=== PATIENT | female | born 1995 | race American Indian/Alaskan Native ===

== ENCOUNTER 2016-08-01 04:41 | Inpatient (IN) | payer MEDICAID ==
[2016-08-01] MEDS ORDERED: Lidocaine 1% 30 ML SDV INJECT PRN (05:28)
[2016-08-01] MEDS ORDERED: Lactated Ringers 500 ML IV ONE (05:28)
[2016-08-01] MEDS ORDERED: Sodium Chloride 0.9% 10 ML Syringe FLUSH PRN ×2 (05:28→11:31)
[2016-08-01] MEDS ORDERED: Acetaminophen 325 MG Tab PO PRN (05:28)
[2016-08-01] MEDS ORDERED: Carboprost Tromethamine 250 MCG/1 ML Amp IM PRN (05:28)
[2016-08-01] MEDS ORDERED: Methylergonovine 0.2 MG/1 ML Amp IM PRN (05:28)
[2016-08-01] MEDS ORDERED: Misoprostol 400 MCG (4 X 100 MCG TAB) RECTAL PRN (05:28)
[2016-08-01] MEDS: Lactated Ringers 1,000 ML IV SCH ×5 (05:30→11:05)
[2016-08-01] MEDS: Ondansetron 4 MG/2 ML SDV IV PRN ×2 (06:16→11:02)
[2016-08-01] MEDS ORDERED: fentaNYL 100 MCG/2 ML SDV ONE ×2 (06:19→11:08)
[2016-08-01] MEDS ORDERED: ePHEDrine 50 MG/ML SDV ONE (06:46)
--- NOTE | 2016-08-01 07:30 | PCM.PRNOTE ---
{null, - Free Text/Narrative Note: Called to provide intrathecal pain relief to this laboring patient. After consent signed, and monitors on, proceeded. With patient in sitting position, sterile prep/drape. Skin wheal at L3-4 with 1 % lidocaine. LP X 1 with 25g pencan spinal needle. Positive, free flowing CSF. No heme, no paresthesia. Then 20mcg sufenta (the first vial of sufenta fell on the floor and was wasted at pyxis with the nurse), plus 30mcg fentanyl plus 6mg (0.8ml) mpf hyperbaric spinal 0.75%mpf marcaine, plus 0.4ml preservative saline, plus epi wash given intrathecally. Patient's SBP dropped to high 70's after around 5 minutes, so ephedrine given - first 10mg, with good effect, then around 10 minutes later another 15mg needed due to SBP drop, again given with good effect, then around 5 minutes later, another 10mg ephedrine given- again with good effect. During this time, fluid boluses were also given. Patient was resting comfortably, without complaint of pain with contractions, or complaint of nausea. }
[2016-08-01] MEDS ORDERED: Oxytocin/Normal Saline 30 UNIT/500 ML BAG IV SCH (08:15)
--- NOTE | 2016-08-01 08:18 | PN ---
{null, DATE: 08/01/2016 SUBJECTIVE: The patient had the urge to push. OBJECTIVE: Vaginal exam reveals her to be 6 cm, 85% effaced, -1 station, vertex suspected with cervix being somewhat posterior. Tocometer, difficulty reading currently. heart tones in the 150s and accelerations have been seen. ASSESSMENT AND PLAN: Continued active labor, 40 and 1/7 week . We will continue to follow clinically and closely. Bag of water was felt with vaginal exam just now. We will continue to follow clinically and closely. Intrathecal has been called for. We will await staff to give this at the patient's request. Still awaiting labs as well. [facility] /[id number] }
[2016-08-01] MEDS ORDERED: Misoprostol 50 MCG (1/2 of 100 MCG) Tab VAG ONE (08:19)
--- NOTE | 2016-08-01 09:48 | PN ---
{null, DATE: 08/01/2016 SUBJECTIVE: The patient is comfortable and sleeping now status post her intrathecal. OBJECTIVE: heart tones in the 140s range, minimal variability and acceleration noted with vaginal exam. Tocometer reveals contractions every 4 to 5 minutes. Vaginal exam reveals her to be 6 cm, 85% effaced, -1/-2 station, vertex suspected. Artificial rupture of membranes done after discussion with the patient, yielding copious amounts of clear fluid. ASSESSMENT: Intrauterine at 40-1/7th weeks by 16-2/7th-week ultrasound with active labor, advanced cervical dilation, limited insufficient care, positive Chlamydia treated in the past and tested for today with urine drug screen positive for oxycodone. PLAN: We will follow clinically and closely. Consider Pitocin augmentation if heart tones become more reassuring and we will follow closely. At the current time of dictation, we are leaving the operating room open as well as VACUUM TECHNICIAN available until this patient delivers due to her risk factors and concerns. [facility] /[id number] }
[2016-08-01] MEDS ORDERED: fentaNYL 100 MCG/2 ML SDV IVPUSH PRN (10:07)
[2016-08-01] MEDS ORDERED: fentaNYL 100 MCG/2 ML SDV ITHECAL ONE (10:33)
[2016-08-01] MEDS ORDERED: ePHEDrine 50 MG/ML SDV IV ONE (10:35)
[2016-08-01] MEDS ORDERED: Oxytocin 10 Units/1 ML SDV IM PRN (11:31)
[2016-08-01] MEDS ORDERED: Simethicone 80 MG Tab.Chew PO PRN (11:31)
[2016-08-01] MEDS ORDERED: Zolpidem 5 MG Tab PO PRN (11:31)
[2016-08-01] MEDS ORDERED: Benzocaine/Menthol 20%-0.5% Spray 56 GM Canister TOP PRN (11:31)
[2016-08-01] MEDS ORDERED: Measles, Mumps & Rubella Vaccine 0.5 ML SDV SUBCUT ONE (11:31)
--- NOTE | 2016-08-01 11:34 | PCM.PRNOTE ---
{null, - Free Text/Narrative Note: Called to re-do intrathecal for pain relief for this patient. All meds were drawn up, after sterile prep and drape, skin wheal with 1% lidocaine at L3-4 - after skin wheal, patient stated that she needed to push - pt was then placed in supine position, where the nurses delivered her. All narcotics were then wasted (see pyxis). }
[2016-08-01] MEDS: Ibuprofen 800 MG Tab PO PRN (11:45)
[2016-08-01] MEDS ORDERED: Diphtheria,Pertussis(Acell),Tetanus Vaccine 0.5 ML SDV IM ONE (12:00)
--- NOTE | 2016-08-01 12:35 | HP ---
{null, PATIENT IDENTIFICATION: Fiorella George is a 21-year-old G3, P 1-0-1-1, intrauterine at 40-2/7th weeks by 16-2/7th week ultrasound with limited/insufficient care that presents with contractions. HISTORY OF PRESENT ILLNESS: The patient states contractions started about 3 days ago, worsening since 3:00 a.m. on date of admission, increasing in frequency and intensity to the point that they are coming every 5 minutes, causing her breathe through and felt in the lower abdomen and back area. She denies any spotting, bleeding, or leaking. She does believe she has lost her mucus plug over the last 2 to 3 days with a mucusy type discharge. To put this in context, she had positive chlamydia back in February 2016 and stated she was treated at [facility] for this and remembers taking big pills. Records were called for, reviewed as below and supplemented by patient history, had one visit in February [address] [facility]. OB HISTORY: On 10/21/2014 had vacuum-assisted vaginal delivery with first- degree periurethral abrasion that was repaired with bradycardia prolonged second stage of labor, right OP presentation, nuchal cord x1, yielding a male weighing 7 pounds 9 ounces with of 6 and 9, with an EBL of 300 mL. ANTEPARTUM LABS: ABO blood type is A positive, negative antibody. Rubella immune. RPR nonreactive. Negative hepatitis B surface antigen. Negative hep C, HIV, positive chlamydia, and negative gonococcal disease. Urine drug screen in October 2015 was positive for opiates, oxycodone, and benzodiazepines in February 2016 during this was negative. ALLERGIES: The patient states none, but tramadol is listed in chart. PAST MEDICAL/PAST SURGICAL HISTORY: Multiple knee surgeries in 06/2013 and 08/2013 had an allograft implant on the knee with removal of deep implant at that time. History of recurrent otitis media, pharyngeal tonsillitis, bronchitis, cellulitis of face, impetigo, acute sinusitis, tear of her PCL, and questionable distant history of MRSA. FAMILY HISTORY: Diabetes runs in the family. Lung cancer in paternal grandfather. Negative family history of defects, anesthesia, bleeding problems, or thyroid disorder. SOCIAL HISTORY: The patient had been living in [place]. No care there. [place] father of baby, presents with her today. She does smoke 2 to 3 cigarettes per day. Denies alcohol or drug use. Positive drug screen as noted in the past and negative in February 2016. REVIEW OF SYSTEMS: Otherwise reviewed and felt to be noncontributory. OBJECTIVE: Vital Signs: Blood pressure and vitals will be updated and [facility]. No immediate concerns were noted per nurses. Appearance: Female appears stated age, acting appropriate, nontoxic appearance. Breathing through contractions, but answering questions appropriately in between. HEENT: Head is atraumatic. EOMs intact. PERRLA. No scleral icterus. No obvious otorhinorrhea. Mucous membranes are moist. Neck: No masses or tenderness. Lungs: Clear to auscultation bilaterally. No increased work of breathing. Heart: S1 and S2. Regular rate and rhythm. Abdomen: Gravid, Jamal's indeterminate, nontender, and nondistended. Bowel sounds positive. No organomegaly, pulsatile masses, or hernias. No rebound, rigidity, or guarding. : Normal external female genitalia. Normal position and presentation of urethra. Speculum exam done. GC, chlamydia and wet prep was obtained. There is some minimal spotting. Negative pooling. Ferning was done as well. Mucusy cervical discharge was noted. Vaginal exam thereafter reveals her to be 6 cm, 85% effaced, -1 station, vertex suspected and bag of water felt. Extremities: No peripheral edema. Deep tendon reflexes 3/4 bilaterally and symmetric in the lower extremities. Psych: Mood and affect are congruent. Judgment and insight are intact. Skin: No cyanosis, clubbing, or jaundice. LABORATORY DATA: Pending is a CBC, and a bio red drug screen. heart tones are in the 140s to 150s range. I see one acceleration at current time of dictation. Tocometer reveals contractions every 2 to 3 minutes. ASSESSMENT AND PLAN: 1. Intrauterine 40-1/7th weeks by 16-2/7th week ultrasound. 2. Active labor with advanced cervical dilation being 6 cm. 3. Limited/insufficient care with only documented visit in February 2016. 4. Group B Streptococcus unknown status. The patient is currently afebrile. No evidence of rupture of membranes and is over 37 weeks. We will continue to follow clinically and closely. 5. Positive chlamydia back in February 2016, suspected treatment based on her history of picking up some pills at [facility], retest today. 6. History of positive urine drug screen in October 2015 for opiates, oxycodone, and benzodiazepines. Negative in February 2016, we will do one today. 7. G3, P 1-0-2-1. PLAN: As the patient has had rapid dilation from 3 cm to 6 cm, wishing something for pain. We will call for intrathecal. We will have her labs drawn as above and we will continue to follow clinically and closely. The patient understands and agrees with the above treatment plan. [facility] /[id number] }
--- NOTE | 2016-08-01 12:38 | PN ---
{null, DATE: 08/01/2016 SUBJECTIVE: Patient is feeling contractions, had an urge to push. I was called to the room. OBJECTIVE: heart tones in the 150s, variability is noted. Tocometer reveals contractions every 2 to 3 minutes, it is at 6. Vaginal exam reveals to be 7 to 8 cm, 95% effaced, -1 to - 2 station, vertex suspected. ASSESSMENT: Intrauterine at 40 and 1/7th weeks by 16 and 2/7th week ultrasound now status post artificial rupture of membranes and Pitocin augmentation, admitted with active labor and advanced cervical dilation, with history of limited/insufficient care. Positive UDS for oxycodone. PLAN: We will continue with current treatment, hold off on OR starting the case as she is progressing and we will follow clinically and closely. The patient understands and agrees with the above treatment plan. [facility] /[id number] }
[2016-08-02] MEDS: Ibuprofen 800 MG Tab PO PRN ×3 (00:36→23:11)
[2016-08-02] MEDS: Docusate Sodium 100 MG Cap PO PRN ×3 (00:36→23:12)
--- NOTE | 2016-08-02 09:49 | PN ---
{null, DATE: 08/02/2016 SUBJECTIVE: The patient is tolerating p.o., ambulating, urinating, and passing flatus, had some back pain, using a K-pad, bottle feeding her baby. OBJECTIVE: Vital Signs: Last set of vitals updated and listed in the chart. Temperature 98.4, heart rate 97, blood pressure 113/64, respiratory rate 18. Appearance: Lying in the bed. Lungs: Clear to auscultation bilaterally. Heart: S1 and S2. Regular rate and rhythm. Abdomen: Firm uterus -1 below umbilicus. Extremities: No peripheral edema. No calf pain. ASSESSMENT AND PLAN: day #1, status post precipitous spontaneous vaginal delivery, appears to be doing well. We will continue to follow clinically and closely. Continue K-pad for her back pain, encouraged fluid intake and follow closely. The patient understands and agrees with the above treatment plan. [facility] /[id number] }
--- NOTE | 2016-08-02 10:35 | DEL ---
{null, DATE: 08/01/2016 PREOPERATIVE DIAGNOSES: 1. Intrauterine at 40 and 1/7 weeks by 16-2 weeks' ultrasound. 2. Active labor with advanced cervical dilation upon admission. 3. Limited/insufficient care. 4. Group B Streptococcus unknown. 5. Positive chlamydia in February 2016, suspect treatment with retesting upon admission. 6. History of UDS positive in December 2015 with opiates, oxycodone, and benzodiazepines, negative in 02/2016 and positive for oxycodone upon admission. 7. 3, para 1-0-1-1. POSTOPERATIVE DIAGNOSES: 1. Intrauterine at 40 and 1/7 weeks by 16-2/ weeks' ultrasound, precipitous spontaneous vaginal delivery. 2. Active labor, advanced cervical dilation upon admission. 3. Limited/insufficient care. 4. Group B Streptococcus unknown. 5. Positive chlamydia in February 2016, suspect treatment with retest being upon admission. 6. History of UDS positive in December 2015 with opiates, oxycodone, and benzodiazepines, negative in 02/2016 and positive for oxycodone upon admission. 7. 3, para 1-0-1-1. 8. JACI presentation with left hand by right cheek. PROCEDURE PERFORMED: Artificial rupture of membranes, Pitocin augmentation, precipitous spontaneous vaginal delivery. ANESTHESIA/ANALGESIA: The patient did receive an intrathecal in the first stage of labor. She also received some fentanyl. ESTIMATED BLOOD LOSS: 200 mL. FINDINGS: Male, Apgars and weight pending with precipitous spontaneous vaginal delivery noted. SUMMARY OF EVENTS: The patient is a 21-year-old, G3, P1-0-1-1 with intrauterine at 40 and 1/7 weeks by 16 and 2/7 weeks' ultrasound, admitted with active labor with advanced cervical dilation, history of limited insufficient care, and other history as above with a positive UDS for oxycodone upon admission. Subsequently, the patient received an intrathecal in the first stage of labor, slowly progressed thereafter to 7 to 9 cm, positional changes ensued, and despite this, the patient started having more pain once her intrathecal wore off and was requesting another intrathecal. She did receive some fentanyl prior and did not provide patient the relief she wanted. Subsequently, 2nd intrathecal was called for and as patient was being set up to be given the intrathecal, she had the urge to push. I do not believe any anesthesia was given. A needle was removed from her back, which I believe only had lidocaine for local anesthesia. She subsequently laid back, nurses delivered JACI presentation with left hand by right cheek. I arrived to the room as I was called to the room stat, donned sterile gloves. Upon my arrival to the room, the patient was being put on mother's abdomen/chest. Subsequently, cord was doubly clamped and cut, infant was further resuscitated on mother's chest, and then approximately 10 mL of cord blood was obtained for labs. Placenta then delivered with gentle cord traction and fundal massage within 5-10 minutes. Perineum, vagina, and perirectal areas were then examined and noted to have bilateral less than 1.5 cm labia minora abrasions, nonbleeding, non-repaired after discussion with the patient. Pitocin was started per protocol. Mother and infant are currently stable at the time of dictation. [facility] /[id number] [facility] }
[2016-08-02] MEDS: Prenatal Multivitamin with Calcium/Folic Acid/Iron Tab PO SCH (11:03)
--- NOTE | 2016-08-02 14:01 | PCM48HPAN ---
{null, Post Anesthesia Note - EVALUATION WITHIN 48HRS OF ANESTHETIC Vital Signs in Normal Range: Yes (36.9, 97, 113/64, 18 RR) Patient Participated in Evaluation: Yes Respiratory Function Stable: Yes Airway Patent: Yes Cardiovascular Function Stable: Yes Hydration Status Stable: Yes Pain Control Satisfactory: Yes Nausea and Vomiting Control Satisfactory: Yes Mental Status Recovered: Yes - COMMENTS/OBSERVATIONS Free Text/Narrative:: Patient has mild c/o back pain at intrathecal site, states that it is well controlled with the pain meds she is receiving, and is similar to the pain from her prior delivery. Patient has no other c/o - no c/o PDPH, no c/o nausea etc. No post anesthesia complications noted. }
[2016-08-02] MEDS: Acetaminophen/HYDROcodone 325-10 MG Tab PO PRN (23:11)
[2016-08-03] MEDS: Acetaminophen/HYDROcodone 325-10 MG Tab PO PRN (04:09)
[2016-08-03] MEDS: Docusate Sodium 100 MG Cap PO PRN (13:44)
[2016-08-03] MEDS: Ibuprofen 800 MG Tab PO PRN (13:44)
[2016-08-03] MEDS: Prenatal Multivitamin with Calcium/Folic Acid/Iron Tab PO SCH (13:51)
[2016-08-03 16:07] VITALS: BP 101/56
--- NOTE | 2016-08-05 10:59 | DISCH ---
{null, ADMIT DIAGNOSES: 1. Intrauterine at 40-1/7 weeks by 16-2/7 weeks' ultrasound. 2. Active labor with advanced cervical dilation being 6-7 cm upon admit. 3. Limited/insufficient care. 4. Group B Streptococcus unknown. 5. Positive chlamydia in February 2016, suspected treatment, tested for upon admission. 6. History of positive drug screen in October 2015 for opiates, oxycodone, benzodiazepines, negative in February 2016, but positive upon admission with oxycodone. 7. 3, para 1-0-1-1. DISCHARGE DIAGNOSES: 1. Intrauterine at 40-1/7 weeks by 16-2/7 weeks' ultrasound- delivered. 2. Active labor with advanced cervical dilation being 6-7 cm upon admit. 3. Limited/insufficient care. 4. Group B Streptococcus unknown. 5. Positive chlamydia in February 2016, suspected treatment, tested for upon admission. 6. History of positive drug screen in October 2015 for opiates, oxycodone, benzodiazepines, negative in February 2016, but positive upon admission with oxycodone. 7. Now 3, para 2-0-1-2 8. Left occiput anterior presentation with left hand by right cheek.. PROCEDURES PERFORMED: Artificial rupture of membranes, Pitocin augmentation, precipitous spontaneous vaginal delivery per Dr. Zaldivar. HISTORY OF PRESENT ILLNESS: Please see H and P. SUMMARY OF HOSPITAL COURSE: The patient was admitted on the above date with the above diagnoses, underwent the above procedures. Then went on to have the precipitous spontaneous vaginal delivery yielding a male with scores 8 and 9, weighing 3585 g, with JACI presentation with left hand by right cheek. Please see delivery note for further details. day 1, please see note. day #2, date of discharge, the patient was tolerating p.o., ambulating, urinating, and passing flatus, requesting discharge. PHYSICAL EXAMINATION: Vital Signs: Last set of vitals updated and listed in the chart. Temperature 97.9, heart rate 88, blood pressure 118/68, respiratory rate 16. Lungs: Clear to auscultation bilaterally. Heart: S1 and S2. Regular rate and rhythm. Abdomen: Firm uterus right below the umbilicus. Extremities: No peripheral edema. No calf pain. LABORATORY DATA: Discharge white cell count 12.2, hemoglobin 11.3, compared to predelivery hemoglobin 11.6, and platelets 214,000. CONDITION ON DISCHARGE COMPARED TO CONDITION ON ADMISSION: Improved. DISCHARGE INSTRCUTIONS: 1. Diet as tolerated. 2. No lifting more than 10-20 pounds. 3. No sit-ups, straining, and pelvic rest for next 6 weeks with immediate return to fertility discussed with the patient. 4. Reasons to return or go to the emergency room were discussed with the patient in detail including, but not limited to, temperature greater than 100.4, foul-smelling discharge, red, hot tender breasts, or increased vaginal bleeding. DISCHARGE MEDICATIONS: 1. [id number] Tylenol or ibuprofen for pain. 2. Iron sulfate 325 b.i.d. x6 weeks. FOLLOW UP: For 6-week visit. Her baby will be followed up on Friday, 2 days from now, in the clinic. Appointment has been made. Discussed with the patient the importance of followup and ramifications of not doing so in regard to her as well as reasons to return or go to the emergency in regard to her . [facility] /[id number] [facility] }
== END 2016-08-03 15:10 | disposition home or self-care (01) | DRG 775 ==
LOC: DL.OBCHECK 04:41 → DL.OB 05:28 → OBSVTOIN 11:21 → DL.OB 11:21
PROVIDERS: ADMIT Family Medicine; ATTEND Family Medicine
PROC: 10E0XZZ Delivery of Products of Conception, External Approach (ICD-10-PCS; principal; 2016-08-01)
PROC: 00HU33Z Insertion of Infusion Device into Spinal Canal, Percutaneous Approach (ICD-10-PCS; 2016-08-01)
PROC: 3E0R3CZ (ICD-10-PCS; 2016-08-01)
DX: O99.334 Smoking (tobacco) complicating childbirth (principal); O62.3 Precipitate labor; O99.324 Drug use complicating childbirth; F11.90 Opioid use, unspecified, uncomplicated; F17.210 Nicotine dependence, cigarettes, uncomplicated; Z3A.40 40 weeks gestation of pregnancy; Z37.0 Single live birth
CPT/HCPCS: 01967; 36415; 80305; 82274; 85027; 87210; 87491; 87591; 90715; A9270-GY; J2405; J2590; J3010; J7120

== ENCOUNTER 2016-10-31 04:46 | Emergency (ER) | payer MEDICAID ==
[2016-10-31 05:03] VITALS: BP 115/64
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
[2016-10-31 05:44] LABS: CHLORIDE,CL 105 mmol/L (101-111); SODIUM,NA 141 mmol/L (135-145)
[2016-10-31] MEDS ORDERED: Acetaminophen/Codeine 120-12 MG/5 ML Soln 5 ML UD Cup PO ONE (06:01)
== END 2016-10-31 06:27 | disposition home or self-care (01) ==
LOC: DL.ED 04:46
DX: S00.83XA Contusion of other part of head, initial encounter (principal); M54.2 Cervicalgia; F17.210 Nicotine dependence, cigarettes, uncomplicated; Z88.5 Allergy status to narcotic agent; W10.8XXA Fall (on) (from) other stairs and steps, initial encounter
CPT/HCPCS: 36415; 70450; 70486; 72125; 73660; 80053; 84703; 85025; 99284; A9270; G0480

== ENCOUNTER 2016-11-15 15:11 | Emergency (ER) | payer MEDICAID ==
[2016-11-15 17:20] VITALS: BP 115/74
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
[2016-11-15] MEDS ORDERED: cefTRIAXone 250 MG, Lidocaine 1% 0.9 ML IM ONE ×2 (18:24)
[2016-11-15] MEDS ORDERED: Azithromycin 250 MG Tab PO ONE (18:24)
[2016-11-15 18:43] LABS: CHLORIDE,CL 104 mmol/L (101-111); SODIUM,NA 140 mmol/L (135-145)
[2016-11-15] MEDS ORDERED: cefTRIAXone 1 GM Vial ONE (18:45)
[2016-11-15] MEDS ORDERED: cefTRIAXone 1 GM, Lidocaine 1% 2.1 ML IM ONE ×2 (18:57)
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
== END 2016-11-15 19:41 | disposition home or self-care (01) ==
LOC: DL.ED 15:11
DX: T76.21XA Adult sexual abuse, suspected, initial encounter (principal); F17.210 Nicotine dependence, cigarettes, uncomplicated; Z98.890 Other specified postprocedural states; Z88.5 Allergy status to narcotic agent
CPT/HCPCS: 72040; 73080; 73110; 73130; 80053; 80305; 81001; 82550; 82553; 85025; 86703; 86803; 87210; 87340; 99285; A9270; J0696; 36415

== ENCOUNTER 2016-12-28 01:42 | Emergency (ER) | payer SELFPAY ==
[2016-12-28 01:56] VITALS: BP 140/102
== END 2016-12-28 01:55 | disposition left against medical advice (07) ==
LOC: DL.ED 01:42
DX: Z53.21 Procedure and treatment not carried out due to patient leaving prior to being seen by health care provider (principal)

== ENCOUNTER 2016-12-28 12:05 | Emergency (ER) | payer SELFPAY ==
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
[2016-12-28 12:54] LABS: CHLORIDE,CL 100 mmol/L (101-111); SODIUM,NA 139 mmol/L (135-145)
[2016-12-28 13:00] LABS: ACETAMINOPHEN < 10
[2016-12-28 14:10] VITALS: BP 118/85
== END 2016-12-28 14:40 ==
LOC: DL.ED 12:05
DX: F19.10 Other psychoactive substance abuse, uncomplicated (principal); F17.210 Nicotine dependence, cigarettes, uncomplicated; Z88.6 Allergy status to analgesic agent
CPT/HCPCS: 36415; 71010; 73560; 80053; 80305; 81001; 81025; 83735; 84443; 85025; 99285; G0480; 99284

== ENCOUNTER 2018-04-08 04:01 | Inpatient (IN) | payer MEDICAID, OTHER ==
--- NOTE | 2018-04-08 07:02 | OBOUT ---
DATE: 04/08/2018 SUBJECTIVE: Fiorella is a 23-year-old woman who presents with what she thought was rupture of membranes. She is approximately 39 and 4/7 weeks' gestation today. She says that she has been having some clear drainage and discharge for the past several hours. She does note that she is also having some contractions every 3 to 5 minutes. OBJECTIVE: Vital Signs: Stable. She is afebrile. General: Fiorella is a 23-year-old woman who is uncomfortable with frequent contractions. Pelvic: Nursing did do a cervical exam, and she was 3 cm dilated. She was observed for over an hour. Initially, she had regular contractions every 3 minutes, but those spaced up fairly quickly and are now very infrequent and in an irregular pattern. LABORATORY DATA: Urinalysis was positive for clue cells. Both Nitrazine swab and AmniSure were negative. ASSESSMENT: Bacterial vaginosis in a 39-4/7 weeks' gestation . PLAN: We will place her on metronidazole 500 mg twice a day for 7 days. She has her OB followup already scheduled in [place]. [facility] /[id number]
[2018-04-08] MEDS ORDERED: Ondansetron 4 MG/2 ML SDV IV PRN (10:22)
[2018-04-08] MEDS ORDERED: Misoprostol 400 MCG (4 X 100 MCG TAB) RECTAL PRN (10:22)
[2018-04-08] MEDS ORDERED: Tranexamic Acid 1,000 MG in Sodium Chloride 0.9% 100 ML IV PRN (10:22)
[2018-04-08] MEDS ORDERED: Lidocaine 1% 30 ML SDV INJECT PRN (10:22)
[2018-04-08] MEDS ORDERED: Carboprost Tromethamine 250 MCG/1 ML Amp IM PRN (10:22)
[2018-04-08] MEDS ORDERED: Methylergonovine 0.2 MG/1 ML Amp IM PRN (10:22)
[2018-04-08] MEDS ORDERED: Sodium Chloride 0.9% 10 ML Syringe FLUSH PRN ×2 (10:22→15:39)
[2018-04-08] MEDS ORDERED: Lactated Ringers 500 ML IV ONE (10:22)
[2018-04-08] MEDS ORDERED: Oxytocin/Normal Saline 30 UNIT/500 ML BAG IV SCH ×2 (10:30→12:15)
[2018-04-08] MEDS ORDERED: Ondansetron 4 MG/2 ML SDV ONE (10:39)
[2018-04-08] MEDS ORDERED: fentaNYL 100 MCG/2 ML SDV ONE (10:46)
[2018-04-08] MEDS ORDERED: fentaNYL 100 MCG/2 ML SDV ITHECAL ONE (10:52)
[2018-04-08] MEDS: Lactated Ringers 1,000 ML IV SCH ×2 (11:05→14:24)
--- NOTE | 2018-04-08 11:22 | PCM.PRNOTE ---
- Free Text/Narrative Note: Requested to provide analgesia to full term patient in severe pain. Upon entering the room, patient is sitting on edge of bed complaining of severe abdominal/pelvic pain and discomfort. Procedure was discussed with patient including adverse outcomes and expectations. Pt consented to analgesia, SAB/ IT. Pt placed into a proper sitting position. Landmarks for SAB/IT were identified and marked. Hands were washed and appropriate PPE was applied. Back was prepped with betadine x3. A sterile, transparent, fenestrated drape was applied. Excess betadine was removed. Using 3 mL of a 1% lidocaine solution , a skin wheel was placed at the L2/L3 interspace. A 24 ga (4 inch) [place] spinal needle was inserted until positive for CSF. Negative for heme or paresthesias. Injected fentanyl 30 mcg, sufentanil 25 mcg, and 7.5 mg of a 0.75 % bupivacaine solution. Pt was placed left lateral position for approximately 20 minutes. There were zero complications or adverse outcomes. Will continue to monitor. Procedure Date & Time: 04/08/18 [id number]
--- NOTE | 2018-04-08 13:44 | OBOUT ---
DATE: 04/08/2018 DATE AND TIME OF NST: Date: 04/08/2018 Time: 1018 hours to 1030 hours. REASON FOR NST: 1. Intrauterine at 39+ weeks by 35 week ultrasound. 2. Active labor with contractions and cervical change. 3. History of vaginal leaking, doubt spontaneous rupture of membranes. 4. GBS negative. 5. Limited care with 1 visit documented. 6. History of positive THC on urine drug screen 03/09/2018, negative upon admission. 7. G3, P2-0-0-2. NST INTERPRETATION: During this time period, heart tone baseline is approximately 125 to 130 and there are at least two 15 x 15 beats per minute accelerations making this strip reactive. It is also noted to be reassuring. Tocometer reveals potential 4 contractions felt by patient. ASSESSMENT: 1. Nonstress test, reactive and reassuring. 2. Tocometer with contractions. PLAN: Please see H and P for further details. We will continue to follow clinically and closely. [facility] /[id number]
--- NOTE | 2018-04-08 13:53 | HP ---
PATIENT IDENTIFICATION: Fiorella George is a 23-year-old, G3, P2-0-0-2, intrauterine , at 39 plus weeks by a 35-week ultrasound, who presents with contractions and vaginal leaking. 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 At approximately 3:00 a.m. on the date of admission, the patient noticed vaginal leaking after getting out of the truck, enough to soak through her clothing. She put a large pad on and continued to soak through this pad and then presented to the hospital for further evaluation and management. She was initially evaluated by the physician on-call, Dr. Truong, and evaluated with labs revealing urinalysis with 5 to 10 white cells per high-power field, negative membrane rupture test, and negative urine drug screen. She was subsequently diagnosed with suspected BV, and Flagyl script was given. While she was waiting for a ride, her contractions increased in frequency and intensity to the point that they are coming every 2 to 5 minutes apart and increasing on the pain scale. While waiting for a ride, she was subsequently put in the tub after monitoring, ensured status reassuring; and thereafter, I was called to evaluate the patient as she was requesting my presence. Thereafter, she was found to be in labor with contractions and cervical change. Please see below. Records were called for, reviewed as below, and supplemented by the patient's history. ALLERGIES: Tramadol. MEDICATIONS: vitamins. OBSTETRICAL HISTORY: 1. On 10/21/2014, delivered a male, 6 pounds 4 ounces, spontaneous vaginal delivery. 2. On 08/11/2016, delivered a male, 7 pounds 6 ounces, with a precipitous spontaneous vaginal delivery. FAMILY HISTORY: Negative for anesthesia, bleeding problems, or defects. Mother with diabetes mellitus. PAST SURGICAL HISTORY: She had a right knee surgery in 2013. SOCIAL HISTORY: Lives in [place] with parents. Recently moved from [place] where she was getting her care. She lives with her children and a dog. She denies any alcohol, tobacco, or drug use. ANTEPARTUM LABORATORY DATA: ABO blood type for [place] records that were done on 03/09/2018, reveal a blood type of A positive, negative antibody, rubella immune, syphilis serology nonreactive, and negative hepatitis B surface antigen, HIV and a rapid GBS were negative. Urine drug screen was positive for THC on this date. OB ultrasound done on 03/09/2018, revealed a single live intrauterine gestation at 35 weeks exactly. No complications noted. Amniotic fluid is normal, measuring 16.10. REVIEW OF SYSTEMS: The patient denies any headaches, visual changes, or upper abdominal pain. Otherwise, review of systems was fully reviewed and felt to be noncontributory. OBJECTIVE: Vital Signs: Blood pressure 126/58, heart rate 97, the patient feels afebrile, and respiratory rate 12 to 16. Appearance: Female, appears her stated age, acting appropriate for age, nontoxic in appearance, breathing through contractions but answering questions appropriately in between. HEENT: Head atraumatic. EOMs intact. PERRLA. No scleral icterus. No obvious otorrhea or rhinorrhea. Mucous membranes are moist. Neck: No obvious tenderness. Lungs: Clear to auscultation bilaterally. No increased work of breathing. Heart: S1 and S2. Regular rate and rhythm. Abdomen: Gravid. Jamal indeterminate. Nontender. Nondistended. Bowel sounds positive. No other organomegaly, pulsatile masses, or obvious hernias. No rebound, rigidity, or guarding with monitors applied. Genitourinary: Normal external female genitalia. Normal position and presentation of urethra. Vaginal: My exam reveals her to be 6 to 7 cm, 85% effaced, -1 station, vertex suspected, and artificial rupture of membranes done after discussion with the patient yielding copious amounts of clear fluid. Extremities: No peripheral edema. Deep tendon reflexes, 2 to 3/4 bilaterally and symmetric in the lower extremities. Psychiatric: Mood and affect are congruent. Judgment and insight are intact. Skin: Without any cyanosis, clubbing, or jaundice. Pelvic: heart tones in the 130s range, felt to be reassuring. Tocometer reveals contractions every 2 to 5 minutes on average. ASSESSMENT: 1. Intrauterine at 39 plus weeks by a 35-week ultrasound. 2. Active labor as evidenced by contractions with cervical change. 3. History of vaginal leaking. Doubt rupture of membranes as bulging bag of water was felt and artificial rupture of membranes done as above as well as initial screen by Dr. Truong was negative. 4. Group B Streptococcus negative. 5. Limited care with one visit documented. 6. History of positive THC on drug screen, 03/09/2018, and negative upon admission. 7. 3, para 2-0-0-2. PLAN: The patient will be admitted. Artificial rupture of membranes done as above. She is requesting something for pain. Intrathecal will be given as soon as possible. Labs will be drawn, and we will continue to follow clinically and closely. Please see orders for further details. [facility] /[id number]
[2018-04-08] MEDS ORDERED: fentaNYL 100 MCG/2 ML SDV IVPUSH ONE (13:57)
--- NOTE | 2018-04-08 14:05 | PN ---
DATE: 04/08/2018 SUBJECTIVE: The patient is comfortable status post intrathecal. OBJECTIVE: Vital Signs: Blood pressure 102/82, heart rates in the 70s, and O2 saturations 97%. Pelvic: heart tones in the 130s and felt to be reassuring. Tocometer reveals contractions every 3 to 5 minutes on an average. Vaginal exam reveals her to be 6 to 7 cm, 85% effaced, -1 station, vertex suspected, and more vaginal leaking noted with vaginal exam clear in nature. ASSESSMENT AND PLAN: Intrauterine at 39 plus weeks by a 35-week ultrasound, admitted in active labor with contractions and cervical change with history of vaginal leaking. Doubt spontaneous rupture of membranes, has undergone artificial rupture of membranes previously, with limited care, in a G3, P2-0-0-2, now with no cervical change despite contractions. Her contractions are not in an adequate pattern yet at this point in time and we will start Pitocin, start at 2, up by 2 every 30 minutes and follow clinically and closely. Plans were discussed with the patient. She understands and agrees with the above treatment plan. [facility] /[id number]
[2018-04-08] MEDS ORDERED: Zolpidem 5 MG Tab PO PRN (15:39)
[2018-04-08] MEDS ORDERED: Measles, Mumps & Rubella Vaccine 0.5 ML SDV SUBCUT ONE (15:39)
[2018-04-08] MEDS ORDERED: Benzocaine/Menthol 20%-0.5% Spray 56 GM Canister TOP PRN (15:39)
[2018-04-08] MEDS ORDERED: Oxytocin 10 Units/1 ML SDV IM PRN (15:39)
[2018-04-08] MEDS ORDERED: Simethicone 80 MG Tab.Chew PO PRN (15:39)
[2018-04-08] MEDS ORDERED: Diphtheria,Pertussis(Acell),Tetanus Vaccine 0.5 ML SDV IM ONE (15:39)
[2018-04-08] MEDS: Ibuprofen 800 MG Tab PO PRN (17:23)
[2018-04-08] MEDS: Docusate Sodium 100 MG Cap PO PRN (17:23)
[2018-04-08] MEDS: Acetaminophen 325 MG Tab PO PRN (21:41)
[2018-04-09] MEDS: Ibuprofen 800 MG Tab PO PRN ×3 (01:47→21:36)
[2018-04-09] MEDS: Prenatal Multivitamin with Calcium/Folic Acid/Iron Tab PO SCH (09:06)
[2018-04-09] MEDS: Ferrous Sulfate 325 MG Tab PO SCH (09:06)
[2018-04-09] MEDS: Docusate Sodium 100 MG Cap PO PRN ×2 (09:12→21:36)
--- NOTE | 2018-04-09 10:08 | PN ---
DATE: 04/09/2018 day #1. SUBJECTIVE: The patient is tolerating p.o.'s, ambulating, urinating, and passing flatus. OBJECTIVE: Vital Signs: Temperature 98.1, heart rate 76, blood pressure 116/65, and respiratory rate 16. Lungs: Clear to auscultation bilaterally. Heart: S1 and S2. Regular rate and rhythm. Pelvic: Firm uterus +1 above umbilicus. Extremities: No peripheral edema. No calf pain. LABORATORY DATA: White cell count 9.5, hemoglobin down to 9.9 compared to predelivery hemoglobin 10.3, and platelets of 200. ASSESSMENT: 1. day #1, status post spontaneous vaginal delivery. 2. Anemia of and acute blood loss with hemoglobin 10.3, down to 9.9 today. We will consider starting iron and follow closely. 3. Rubella equivocal per chart review. The patient will be given MMR per protocol. PLAN: We will proceed to follow clinically and closely. Possible discharge tomorrow. Discussed with the patient. She understands and agrees. [facility] /[id number]
--- NOTE | 2018-04-09 10:14 | DEL ---
DATE: 04/08/2018 PREOPERATIVE DIAGNOSES: 1. Intrauterine at 39 plus weeks by 35-week ultrasound. 2. Active labor with contractions and cervical change upon admission. 3. History of vaginal leaking on date of admission, negative for spontaneous rupture of membranes workup. 4. Group B Streptococcus negative. 5. Limited care with one visit documented. 6. History of positive THC on drug screen 03/09/2018, with urine drug screen negative upon admission. 7. 3, para 2-0-0-2. POSTOPERATIVE DIAGNOSES: 1. Intrauterine at 39 plus weeks by 35-week ultrasound, delivered. 2. Active labor with contractions and cervical change upon admission. 3. History of vaginal leaking on date of admission, negative for spontaneous rupture of membranes workup. 4. Group B Streptococcus negative. 5. Limited care with one visit documented. 6. History of positive THC on drug screen 03/09/2018, with urine drug screen negative upon admission. 7. 3, para 2-0-0-2. 8. Right occiput anterior delivery with nuchal cord x1, reduced bluntly with delivery. PROCEDURES PERFORMED: NST, artificial rupture of membranes, Pitocin augmentation, and subsequent spontaneous vaginal delivery per Dr. Zaldivar. ANESTHESIA/ANALGESIA: The patient did receive an intrathecal in the first stage of labor. She also received some fentanyl p.r.n. ESTIMATED BLOOD LOSS: 200 mL. FINDINGS: Male. scores of 9 and 9. Weight pending. Nuchal cord x1, reduced bluntly with delivery. SUMMARY OF EVENTS: The patient is a 23-year-old, G3, P2-0-0-2, intrauterine at 39 plus weeks by 35-week ultrasound, admitted initially with vaginal leaking and followed closely. Negative spontaneous rupture of membranes, and as she was waiting to go home after this was negative, she went into spontaneous active labor with contractions and cervical change. She subsequently underwent NST, artificial rupture of membranes, and then had dilation of the cervix to become arrested and subsequent Pitocin augmentation was started. She received an intrathecal as well. She was found to be complete, and I was called to the room, donned sterile gown and gloves. The patient started pushing with contractions. vertex was then subsequently delivered in a SHARONDA presentation with nuchal cord x1, reduced bluntly with delivery as well as anterior and posterior shoulder as well as the rest of the infant followed thereafter. Mouth and nares were suctioned. Cord was doubly clamped and cut, and was resuscitated on the mother's abdomen. Then, approximately 10 mL of cord blood was obtained for labs. Placenta was then delivered with gentle cord traction and fundal massage within 12 minutes. Perineum, vagina, and perirectal areas were then examined without any tears or lacerations. Mother and are currently stable at the time of dictation. [facility] /[id number]
[2018-04-09 21:21] VITALS: BP 115/63
[2018-04-09] MEDS: Acetaminophen 325 MG Tab PO PRN (21:37)
[2018-04-10] MEDS: Acetaminophen 325 MG Tab PO PRN ×2 (02:28→08:44)
[2018-04-10] MEDS: Ibuprofen 800 MG Tab PO PRN (05:29)
[2018-04-10] MEDS: Docusate Sodium 100 MG Cap PO PRN (08:43)
[2018-04-10] MEDS: Prenatal Multivitamin with Calcium/Folic Acid/Iron Tab PO SCH (08:43)
[2018-04-10] MEDS: Ferrous Sulfate 325 MG Tab PO SCH (08:44)
--- NOTE | 2018-04-10 11:45 | DISCH ---
ADMITTING DIAGNOSES: 1. Intrauterine at 39 plus weeks by a 35-week ultrasound. 2. Active labor with contractions and cervical change upon admission. 3. History of vaginal leaking. Negative spontaneous rupture of membranes workup initially. 4. Group B streptococcus negative. 5. Limited care, one visit documented. 6. History of positive THC on drug screen, 03/09/2018, negative upon admission. 7. Rubella equivocal. 8. 3, para 2-0-0-2. DISCHARGE DIAGNOSES: 1. Intrauterine at 39 plus weeks by a 35-week ultrasound, delivered. 2. Active labor with contractions and cervical change upon admission. 3. History of vaginal leaking. Negative spontaneous rupture of membranes workup initially. 4. Group B streptococcus negative. 5. Limited care, one visit documented. 6. History of positive THC on drug screen, 03/09/2018, negative upon admission. 7. Rubella equivocal. 8. 3, para 2-0-0-2. 9. Nuchal cord x1, reduced bluntly with delivery. 10.Anemia of acute blood loss. Hemoglobin dropping from predelivery hemoglobin of 10.3 down to 9.9. PROCEDURES PERFORMED: 1. Nonstress test. 2. Artificial rupture of membranes. 3. Pitocin augmentation. 4. Spontaneous vaginal delivery per Dr. Zaldivar. HISTORY OF PRESENT ILLNESS: Please see H and P. SUMMARY OF HOSPITAL COURSE: The patient was admitted on the above date with the above diagnoses, underwent the above procedures, then went on into active labor. She was initially evaluated by Dr. Truong for vaginal leaking and rupture of membranes. Workup was negative. However, as she was waiting for a ride, she went into labor with contractions and cervical change. Please see notes for further details. She went on to have spontaneous vaginal delivery yielding a male with scores 9 and 9, weighing 7 pounds 9 ounces. Please see delivery note for further details. day #1: Please see progress note. day #2, date of discharge: The patient is tolerating p.o.'s, ambulating, urinating, passing flatus, and requesting discharge. PHYSICAL EXAMINATION: Vital Signs: Last set of vitals updated and listed in the chart. Temperature 98.7, heart rate 80, blood pressure 115/63, and respiratory rate 16. Lungs: Clear to auscultation bilaterally. Heart: S1 and S2. Regular rate and rhythm. Pelvic: Firm uterus +1 below umbilicus. Extremities: No peripheral edema. No calf pain. LABORATORY DATA: On day #1, white cell count 9.5, hemoglobin 9.9, and platelets 200. CONDITION ON DISCHARGE COMPARED TO CONDITION ON ADMISSION: Improved. DISCHARGE INSTRUCTIONS: 1. Diet as tolerated. 2. Activity: No lifting more than 20 pounds. No sit-ups, straining, and pelvic rest for the next 6 weeks with immediate return to fertility was discussed with the patient in detail. 3. Reasons to return or go to the emergency room were discussed with the patient in detail including, but not limited to, temperature greater than 100.4, foul-smelling discharge, red hot tender breasts, or increased vaginal bleeding. DISCHARGE MEDICATIONS: 1. [id number] Tylenol or ibuprofen for pain. 2. Iron sulfate 325 b.i.d. x6 weeks as well as vitamins x6 weeks. 3. Colace 100 mg b.i.d. p.r.n. for stool softener. FOLLOWUP: Follow up in 6 weeks for . I did discuss with her in the interim reasons to return or go to the emergency room in regard to her baby, who will have appointment next week on 04/14/2018. The patient understands and agrees with the above treatment plan. Please see discharge plan for further details. [facility] /[id number]
== END 2018-04-10 10:15 | disposition home or self-care (01) | DRG 806 ==
LOC: DL.OBCHECK 04:01 → DL.OB 10:51 → OBSVTOIN 15:19 → INTOOBSV 15:19 → EEVIPCON 15:19
PROVIDERS: ADMIT Family Medicine; ATTEND Family Medicine
PROC: 10E0XZZ Delivery of Products of Conception, External Approach (ICD-10-PCS; principal; 2018-04-08)
PROC: 10907ZC Drainage of Amniotic Fluid, Therapeutic from Products of Conception, Via Natural or Artificial Opening (ICD-10-PCS; principal; 2018-04-08)
PROC: 3E0R3BZ Introduction of Anesthetic Agent into Spinal Canal, Percutaneous Approach (ICD-10-PCS; principal; 2018-04-08)
PROC: 3E0234Z Introduction of Serum, Toxoid and Vaccine into Muscle, Percutaneous Approach (ICD-10-PCS; 2018-04-08)
DX: O75.3 Other infection during labor (principal); D62 Acute posthemorrhagic anemia; Z37.0 Single live birth; Z3A.39 39 weeks gestation of pregnancy; Z23 Encounter for immunization; O99.02 Anemia complicating childbirth; O69.81X0 Labor and delivery complicated by cord around neck, without compression, not applicable or unspecified; Z67.10 Type A blood, Rh positive; Z88.8 Allergy status to other drugs, medicaments and biological substances
CPT/HCPCS: 36415; 59025; 59409; 80305-QW; 81001; 83986; 84112; 85027; 90707; 90715; 97161-GP; A9270-GY; J2405; J2590; J3010; J7120

== ENCOUNTER 2019-08-10 07:20 | Inpatient (IN) | payer MEDICAID, OTHER ==
[2019-08-10] MEDS ORDERED: Carboprost Tromethamine 250 MCG/1 ML Amp IM PRN (07:33)
[2019-08-10] MEDS ORDERED: Ondansetron 4 MG/2 ML SDV IVPUSH PRN (07:33)
[2019-08-10] MEDS ORDERED: Sodium Chloride 0.9% 10 ML Syringe FLUSH PRN ×2 (07:33→08:47)
[2019-08-10] MEDS ORDERED: Lidocaine 1% 30 ML SDV INJECT PRN (07:33)
[2019-08-10] MEDS ORDERED: Misoprostol 400 MCG (4 X 100 MCG TAB) RECTAL PRN (07:33)
[2019-08-10] MEDS ORDERED: Tranexamic Acid 1,000 MG in Sodium Chloride 0.9% 100 ML IV PRN (07:33)
[2019-08-10] MEDS ORDERED: Lactated Ringers 1,000 ML IV ONE (07:33)
[2019-08-10] MEDS ORDERED: Methylergonovine 0.2 MG/1 ML Amp IM PRN (07:33)
[2019-08-10] MEDS ORDERED: Lactated Ringers 1,000 ML IV SCH (07:45)
[2019-08-10] MEDS ORDERED: Oxytocin/Normal Saline 30 UNIT/500 ML BAG IV SCH (07:45)
[2019-08-10] MEDS ORDERED: Oxytocin/Normal Saline 30 UNIT/500 ML BAG ONE (07:54)
[2019-08-10] MEDS ORDERED: Benzocaine/Menthol 20%-0.5% Spray 56 GM Canister TOP PRN (08:47)
[2019-08-10] MEDS ORDERED: Oxytocin 10 Units/1 ML SDV IM PRN (08:47)
[2019-08-10] MEDS ORDERED: Simethicone 80 MG Tab.Chew PO PRN (08:47)
[2019-08-10] MEDS ORDERED: Zolpidem 5 MG Tab PO PRN (08:47)
--- NOTE | 2019-08-10 08:58 | PCM.DEL ---
L & D Note - General Info Date of Service: 08/10/19 Vacuum Extractor Progress Note - Alternative Labor Strategies Considered Alternative Labor Strategies Considered:: Reports: Yes Strategies Considered:: Reports: Contraction Intensity Adequate, Position Changes Used to Facilitate Rotation & Descent, Empty Bladder, Rest Indications Considered:: Reports: Yes Indications:: Reports: Suspicion of Immediate or Potential Compromise Time Out:: Reports: Yes - Patient Prepared Patient Prepared:: Reports: Yes Informed Consent:: Reports: Yes Risks: Reports: Yes Risks Include:: Reports: Laceration, Shoulder Dystocia, Maternal Injury Anesthesia/Analgesia Adequate:: Reports: Yes - Probability of Success High Probability of Success:: Reports: Yes Weight Estimated:: Reports: AGA Patient Diabetic:: Reports: No Pelvis Adequate:: Reports: Yes Asynclitic:: Reports: No - Application Time Maximum Application Time & Number of Pop-Offs Predetermined:: Reports: Yes Maximum Pressure Maintained in Green Zone (cm Hg):: 0 (see nurses notes) Total Application Time (min): *max=20min: 1 (see nurses notes) Type of Vacuum Used:: Reports: Low profile, Cup: Soft Vacuum Extraction: Successful - Exit Strategy Exit strategy available:: Reports: Yes and resuscitation teams readily available:: Reports: Yes (kiwi vaccum with small flat cup used) - General Info Date of Service: 08/10/19 - Patient Data Lab Results Last 24 Hours: Laboratory Results - last 24 hr 08/10/19 08/10/19 Range/Units 07:44 07:44 WBC 9.2 (5.0-10.0) 10^3/uL RBC 4.08 L (4.2-5.4) 10^6/uL Hgb 12.5 D (12.0-16.0) g/dL Hct 37.0 (37.0-47.0) % MCV 90.7 (80-100) fL MCH 30.6 (27.0-34.0) pg MCHC 33.8 (33.0-35.0) g/dL Plt Count 197 (150-450) 10^3/uL SARS-CoV-2 RNA (RT-PCR) Negative (NEGATIVE) Med Orders - Current: Current Medications Acetaminophen (Tylenol) 650 mg PO Q4H PRN PRN Reason: Pain (Mild 1-3) and fever Benzocaine/Menthol (Dermoplast Pain Relief [place]) 0 gm TOP Q4H PRN PRN Reason: Perineal comfort measures Carboprost Tromethamine (Hemabate Ds) 250 mcg IM ASDIRECTED PRN PRN Reason: HEMORRHAGE Docusate Sodium (Colace) 100 mg PO BID PRN PRN Reason: Constipation Lactated Ringer's (Ringers, Lactated) 1,000 mls @ 500 mls/hr IV BOLUS ONE Stop: 08/10/19 09:32 Lactated Ringer's (Ringers, Lactated) 1,000 mls @ 125 mls/hr IV ASDIRECTED TIANA Oxytocin/Sodium Chloride (Pitocin In Ns 30 Unit/500 Ml) 30 unit in 500 mls @ 2 mls/hr IV TITRATE TIANA; Protocol Tranexamic Acid 1,000 mg/ (Sodium Chloride) 110 mls @ 660 mls/hr IV ONETIME PRN PRN Reason: Bleeding Ibuprofen (Motrin) 800 mg PO Q8H PRN PRN Reason: Mild Pain or Fever Lidocaine HCl (Xylocaine-Mpf 1%) 30 ml INJECT ASDIRECTED PRN PRN Reason: Perineal Repair Measles/Mumps/Rubella Vaccine Live (M-M-R Ii Vaccine) 0.5 ml SUBCUT .ONCE ONE Stop: 08/10/19 08:48 Methylergonovine Maleate (Methergine) 0.2 mg IM ASDIRECTED PRN PRN Reason: Hemorrhage Misoprostol (Cytotec) 800 mcg RECTAL ASDIRECTED PRN PRN Reason: Hemorrhage Ondansetron HCl (Zofran) 4 mg IVPUSH Q4H PRN PRN Reason: Nausea/Vomiting Oxytocin (Pitocin) 10 unit IM ONETIME PRN PRN Reason: Bleeding Prenat Multivit/Arion/Iron/Folic Ac ( Plus Iron) 1 each PO DAILY TIANA Simethicone (Simethicone) 80 mg PO Q4H PRN PRN Reason: Gas Sodium Chloride (Saline Flush) 10 ml FLUSH ASDIRECTED PRN PRN Reason: Keep Vein Open Sodium Chloride (Saline Flush) 10 ml FLUSH ASDIRECTED PRN PRN Reason: Keep Vein Open Witch Jessica (Medi-Pads) 1 each TOP Q4HR PRN PRN Reason: Perineal Comfort Measure Zolpidem Tartrate (Ambien) 5 mg PO BEDTIME PRN PRN Reason: Insomnia Discontinued Medications Oxytocin/Sodium Chloride (Pitocin In Ns 30 Unit/500 Ml) Confirm Administered Dose 30 unit in 500 mls @ as directed .ROUTE .STK-MED ONE Stop: 08/10/19 07:55 - Problem List Review Problem List Initiated/Reviewed/Updated: Yes - My Orders Last 24 Hours: My Active Orders 08/10/19 07:33 Patient Status [ADT] Routine Communication Order [RC] ASDIRECTED Heart Tones [RC] PER UNIT ROUTINE Notify Provider Vital Signs OB [RC] ASDIRECTED Notify Provider [RC] PRN Up ad Tessa [RC] ASDIRECTED Vital Signs [RC] PER UNIT ROUTINE Acetaminophen [Tylenol] 650 mg PO Q4H PRN Carboprost Tromethamine [Hemabate DS] 250 mcg IM ASDIRECTED PRN Lactated Ringers [Ringers, Lactated] 1,000 ml IV BOLUS Lidocaine 1% [Xylocaine-MPF 1%] 30 ml INJECT ASDIRECTED PRN Methylergonovine [Methergine] 0.2 mg IM ASDIRECTED PRN Ondansetron [Zofran] 4 mg IVPUSH Q4H PRN Sodium Chloride 0.9% [Saline Flush] 10 ml FLUSH ASDIRECTED PRN Tranexamic Acid [Cyklokapron] 1,000 mg Sodium Chloride 0.9% [Normal Saline] 100 ml IV ONETIME miSOPROStoL [Cytotec] 800 mcg RECTAL ASDIRECTED PRN Saline Lock Insert [OM.PC] Routine Resuscitation Status Routine 08/10/19 07:34 Pump Management, Intrathecal [RC] ASDIRECTED 08/10/19 07:45 Lactated Ringers [Ringers, Lactated] 1,000 ml IV ASDIRECTED Oxytocin/Normal Saline [Pitocin in NS 30 UNIT/500 ML] 30 unit in 500 ml IV TITRATE 08/10/19 08:47 Benzocaine/Menthol [Dermoplast Pain Relief [place]] See Dose Instructions TOP Q4H PRN Docusate Sodium [Colace] 100 mg PO BID PRN Ibuprofen [Motrin] 800 mg PO Q8H PRN Measles, Mumps & Rubella [M-M-R II Vaccine] 0.5 ml SUBCUT .ONCE ONE Oxytocin [Pitocin] 10 unit IM ONETIME PRN Simethicone 80 mg PO Q4H PRN Sodium Chloride 0.9% [Saline Flush] 10 ml FLUSH ASDIRECTED PRN Zolpidem [Ambien] 5 mg PO BEDTIME PRN witch Jessica [Medi-Pads] 1 each TOP Q4HR PRN 08/10/19 08:48 Patient Status Manage Transfer [TRANSFER] Routine Vaccines to be Administered [RC] PER UNIT ROUTINE Assess Lochia [WOMSER] Per Unit Routine Assess Uterine Involution [WOMSER] Per Unit Routine Breast Pump [WOMSER] Per Unit Routine Ice Therapy [OM.PC] Per Unit Routine Perineal Care [OM.PC] Per Unit Routine Saline Lock Insert [OM.PC] Urgent Sitz Bath [OM.PC] Per Unit Routine 08/10/19 08:50 DRUG SCREEN URINE BIORAD [URCHEM] Urgent 08/10/19 09:00 Vit with Ca/FA/Iron [ Plus Iron] 1 each PO DAILY 08/10/19 Breakfast Regular Diet [DIET] 08/10/19 Dinner Regular Diet [DIET] 08/10/19 Lunch Regular Diet [DIET] Regular Diet [DIET] 08/11/19 06:00 CBC W/O DIFF,HEMOGRAM [HEME] Routine
[2019-08-10] MEDS: Ibuprofen 800 MG Tab PO PRN ×2 (09:26→17:41)
[2019-08-10] MEDS: Acetaminophen 325 MG Tab PO PRN ×2 (10:03→22:18)
--- NOTE | 2019-08-10 10:16 | PN ---
DATE: 08/10/2019 SUBJECTIVE: The patient is breathing through her contractions, feels pressure. OBJECTIVE: heart tones when detected are in the 120s to 130s. Appears with some suspected variable decelerations that are deep in the 50s to 60s. Difficulty reading with her contractions as she is writhing and standing during her contractions. Vaginal exam reveals her to be complete with bulging bag of water and after discussion artificial rupture of membranes was done yielding copious amounts of clear fluid. ASSESSMENT: Now in the 2nd stage of labor with intrauterine at 39-4/7 weeks, admitted in active labor and advanced cervical dilation in a GBS negative, rubella nonimmune, G4, P3-0-0-3. Labs just returned, SARS testing was negative as well as CBC did return revealing a white cell count 9.2, hemoglobin 12.5, platelets 197. PLAN: We will continue to follow clinically and closely. The patient understands and agrees with the above treatment plan. [facility] /[id number]
[2019-08-10] MEDS: Prenatal Multivitamin with Calcium/Folic Acid/Iron Tab PO SCH (16:20)
[2019-08-10] MEDS: Docusate Sodium 100 MG Cap PO PRN (17:42)
--- NOTE | 2019-08-11 02:06 | DEL ---
DATE: 08/10/2019 PREOPERATIVE DIAGNOSES: 1. Intrauterine at 39-4/7 weeks by 30-week ultrasound. 2. Active labor, advanced cervical dilation upon admission. 3. Group B Streptococcus negative. 4. Rubella nonimmune. 5. Late care. 6. G4, P3-0-0-3. POSTOPERATIVE DIAGNOSES: 1. Intrauterine at 39-4/7 weeks by 30-week ultrasound, delivered. 2. Active labor, advanced cervical dilation upon admission. 3. Group B Streptococcus negative. 4. Rubella nonimmune. 5. Late care. 6. G4, P3-0-0-3. 7. Abruption suspected with blood clot noted prior to delivery and noted with delivery of placenta and on the placenta. 8. Nuchal cord x1, reduced bluntly at delivery. 9. Recurrent variable decelerations intermixed with bradycardia prior to second stage and during the second stage of labor. PROCEDURE PERFORMED: Nonstress test followed by artificial rupture of membranes, vacuum-assisted vaginal delivery. ANESTHESIA: None. ESTIMATED BLOOD LOSS: 400 mL. FINDINGS: Male. scores and weight pending. Nuchal cord x1 reduced bluntly at delivery and suspected placental abruption with old blood clot noted prior to delivery and noted with placental delivery and on the placenta. SUMMARY OF EVENTS: The patient is a 24-year-old G4, P3-0-0-3 intrauterine at 39-4/7 weeks by 30-week ultrasound, admitted in active labor and advanced cervical dilation. She was found to be 6 cm, then rapidly progressed to 8 to 9 cm. Had variable decelerations noted. Artificial rupture of membranes done as was nearing second stage of labor. Then, was found to be in the second stage of labor with artificial rupture of membranes yielding copious amounts of clear fluid. Started pushing with contractions, and during this time period, she did have some intermixed bradycardia and repetitive variable decelerations. The urine was drained from the bladder using a Hoff type catheter yielding approximately 15 to 20 mL of clear colored urine. Catheter removed. Subsequently, discussion ensued in regard to kiwi vacuum-assisted vaginal delivery. I did discuss the risks, benefits, alternatives, and complications of this. She understood and agreed and wished to proceed. Verbal consent was obtained and questions were answered. Subsequently, with the next contraction, after discussion, vertex was seen splitting the labia. Kiwi vacuum with low-profile cup was applied, pumped up to the green, and with gentle pulling pressure not to exceed the traction force into the red zone, further descent was noted. At this point, the head was coming 3 cm out the vaginal os or opening. Pop off was noted at that time. Subsequently, the patient continued pushing. vertex was delivered in JACI presentation. Nuchal cord x1 was noted and reduced bluntly with delivery. Anterior and posterior shoulders as well as rest of the delivered there without difficulty. Mouth and nares were suctioned. Cord was doubly clamped and cut. Brought over to warmer for resuscitation. Then, approximately 10 mL of cord blood was obtained for labs. Of note, there was an old blood clot noted with delivery, prior to delivery of vertex, and then with delivery of placenta there was old blood clot noted, and after delivery of placenta old blood clot was noted and somewhat was adherent to the placenta with suspected abruption. Placenta delivered within approximately 5 to 10 minutes with gentle cord traction and fundal massage. Perineum, vagina, and perirectal areas were then examined without any tears or lacerations. Mother and infant are currently stable at time of dictation. [facility] /[id number]
[2019-08-11] MEDS: Ibuprofen 800 MG Tab PO PRN ×2 (05:40→18:13)
[2019-08-11] MEDS ORDERED: Measles, Mumps & Rubella Vaccine 0.5 ML SDV SUBCUT ONE (09:00)
[2019-08-11] MEDS: Docusate Sodium 100 MG Cap PO PRN ×2 (09:43→22:19)
[2019-08-11] MEDS: Prenatal Multivitamin with Calcium/Folic Acid/Iron Tab PO SCH (09:43)
[2019-08-11] MEDS: Acetaminophen 325 MG Tab PO PRN ×2 (09:43→22:19)
--- NOTE | 2019-08-11 10:28 | OBOUT ---
DATE: 08/10/2019 TIME: 7:28 to 7:44. REASON FOR NST: 1. Intrauterine at 39-4/7 weeks by 30-week ultrasound. 2. Active labor with advanced cervical dilation. 3. GBS negative. 4. Rubella nonimmune. 5. Late care. 6. G4, P3-0-0-3. NST INTERPRETATION: During this time period, heart tone baseline is approximately 120, at least two 15 x 15 beats per minute accelerations, making this strip reactive. Also noted to have variable decelerations x2 down into the 70s. Blood pressure 131/81, heart rate 71, temperature 97.8. ASSESSMENT: 1. Nonstress test, reactive, with variable decelerations. 2. Tocometer with contractions, 6 to 7 during this time period. The patient breathing through them. PLAN: Please see admit history and physical done through [facility]. Update it to include the following: The patient states she has had contractions since the evening of 08/09/2019 increasing in frequency and intensity to the point that they are coming on every 2 minutes felt in the lower abdomen, rated it at 9 to 10 out of 10 on a pain scale, causing her to breathe through them. She had some increased vaginal discharge. Unsure if her bag of water is broken. Otherwise, she is GBS negative and is being admitted currently. She will be evaluated here in the near future with another vaginal exam as she was 6 cm upon nurse initial evaluation with these variable decelerations. IV fluids have been started. She wants an intrathecal, and labs have been drawn, and once she has returned we will try to get her intrathecal as soon as possible. The patient understands and agrees with the above treatment plan. [facility] /[id number]
--- NOTE | 2019-08-11 15:26 | PN ---
DATE: 08/11/2019 Postop day #1, status post vacuum-assisted vaginal delivery. SUBJECTIVE: The patient is tolerating p.o. Was ambulating, urinating, passing flatus. States her bleeding has been under control as well as her pain. OBJECTIVE: Vital Signs: Temperature 97.8, heart rate is 54, blood pressure 109/61, respiratory rate 16. Lungs: Clear to auscultation bilaterally. Heart: S1, S2. Regular rate and rhythm. Abdomen: Firm uterus, +1 below umbilicus. Extremities: No peripheral edema. No calf pain. LABS: Reveal white cell count 10; hemoglobin 12.3, compared to predelivery hemoglobin of 12.5; and platelets of 182. ASSESSMENT AND PLAN: Postop day #1, status post vacuum-assisted vaginal delivery with suspected abruption in the late first stage and second stage of labor. Hemoglobin stable. Vital signs are stable. We will continue to follow clinically and closely. Possible discharge tomorrow. [facility] /[id number]
[2019-08-12] MEDS: Ibuprofen 800 MG Tab PO PRN (06:01)
[2019-08-12] MEDS: Docusate Sodium 100 MG Cap PO PRN (09:13)
[2019-08-12] MEDS: Prenatal Multivitamin with Calcium/Folic Acid/Iron Tab PO SCH (09:13)
[2019-08-12] MEDS: Acetaminophen 325 MG Tab PO PRN (09:13)
--- NOTE | 2019-08-12 09:21 | DISCH ---
ADMIT DIAGNOSES: 1. Intrauterine at 39 and 4/7 weeks by 30-week ultrasound. 2. Active labor, advanced cervical dilation upon admission. 3. Group B streptococcus negative. 4. Rubella nonimmune. 5. Late/insufficient care. 6. G4, P3-0-0-3. DISCHARGE DIAGNOSES: 1. Intrauterine at 39 and 4/7 weeks by 30-week ultrasound; delivered. 2. Active labor, advanced cervical dilation upon admission. 3. Group B streptococcus negative. 4. Rubella nonimmune. 5. Late/insufficient care. 6. G4, P3-0-0-3. 7. Placental abruption suspected with blood clots noted prior to delivery, with delivery, and noted on placenta. 8. Nuchal cord x1, reduced bluntly at delivery. 9. Recurrent variable decelerations intermixed with bradycardia in the 1st and 2nd stage of labor. PROCEDURES PERFORMED: Nonstress test, artificial rupture of membranes, vacuum- assisted vaginal delivery per Dr. Zaldivar. HISTORY OF PRESENT ILLNESS: Please see H and P. SUMMARY OF HOSPITAL COURSE: The patient admitted on the above date with above diagnoses, was in active labor, advanced cervical dilation. She progressed rapidly into the 2nd stage of labor. There was blood clot noted with delivery, prior to delivery, and adherent to the placenta with suspected abruption with nuchal cord x1 that was reduced bluntly at delivery and recurrent variable decels with intermixed bradycardia and required vacuum-assisted vaginal delivery. Please see delivery note for further details. day 1, please see progress note. day #2, day of discharge, the patient is tolerating p.o., was ambulating, urinating, passing flatus, and requesting discharge. PHYSICAL EXAMINATION: Vital Signs: Temperature 99, heart rate 57, blood pressure 101/57, respiratory rate 16. Lungs: Clear to auscultation bilaterally. Heart: S1, S2. Regular rate and rhythm. Abdomen: Firm uterus +1 below umbilicus. Extremities: No peripheral edema. No calf pain. CONDITION ON DISCHARGE COMPARED TO CONDITION ON ADMISSION: Improved. DISCHARGE LABORATORY DATA: White cell count 8, hemoglobin 13 compared to predelivery hemoglobin of 12.5, and platelets of 203. DISCHARGE INSTRUCTIONS: 1. Diet as tolerated. 2. Activity: No lifting more than 20 pounds. No sit-ups or straining and pelvic rest over the next 6 weeks, with immediate return to fertility discussed with the patient. 3. Reason to go to the emergency room was discussed with the patient in detail including but not limited to temperature greater than 100.4, foul-smelling discharge, red or tender breasts, or increased vaginal bleeding. DISCHARGE MEDICATIONS: [id number] ibuprofen for pain, vitamins x6 weeks. FOLLOWUP: 6 weeks visit. Did discuss with her [place] scale of 11. She defers wanting counseling or medications at this point in time. She will call and let us know if she needs help and also discuss with her, when we follow up with baby, we can discuss further. She understands and agrees to the above treatment plan. Please see discharge paperwork for further details as well. [facility] /[id number] [facility]
[2019-08-12 10:17] VITALS: BP 106/64; PULSE 71
== END 2019-08-12 09:55 | disposition home or self-care (01) | DRG 805 ==
LOC: DL.OBCHECK 07:20 → DL.OB 07:33 → UNDOADMIN 07:33 → DL.OB 08:36
PROVIDERS: ADMIT Family Medicine; ATTEND Family Medicine
PROC: 10D07Z6 Extraction of Products of Conception, Vacuum, Via Natural or Artificial Opening (ICD-10-PCS; principal; 2019-08-10)
PROC: 10907ZC Drainage of Amniotic Fluid, Therapeutic from Products of Conception, Via Natural or Artificial Opening (ICD-10-PCS; 2019-08-10)
DX: O69.81X0 Labor and delivery complicated by cord around neck, without compression, not applicable or unspecified (principal); O45.93 Premature separation of placenta, unspecified, third trimester; Z37.0 Single live birth; Z3A.39 39 weeks gestation of pregnancy; O76 Abnormality in fetal heart rate and rhythm complicating labor and delivery
CPT/HCPCS: 36415; 59409; 80305-QW; 85027; 90471; 90707; A9270-GY; J2590; J7120; U0002

== ENCOUNTER 2021-03-13 21:23 | Observation (INO) | payer MEDICAID ==
[2021-03-13] MEDS ORDERED: Lactated Ringers 1,000 ML IV SCH ×2 (22:00→23:00)
[2021-03-13] MEDS ORDERED: Lactated Ringers 1,000 ML IV ONE (22:51)
[2021-03-13] MEDS ORDERED: Acetaminophen 325 MG Tab PO PRN (22:54)
[2021-03-13] MEDS ORDERED: Betamethasone Acetate/Betamethasone Sod Phosphate 30 MG/5 ML MDV IM SCH (23:00)
[2021-03-13] MEDS ORDERED: Fluconazole 100 MG Tab PO ONE (23:00)
[2021-03-13] MEDS ORDERED: cefTRIAXone 1 GM in Sodium Chloride 0.9% 50 ML IV SCH (23:00)
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
[2021-03-13] MEDS: metroNIDAZOLE 250 MG Tab PO SCH (23:24)
[2021-03-13] MEDS ORDERED: hydrOXYzine HCl 25 MG Tab ONE (23:36)
[2021-03-14 01:08] VITALS: BP 107/65; PULSE 71
[2021-03-14] MEDS ORDERED: Sodium Chloride 0.9% 10 ML Syringe FLUSH SCH (09:00)
[2021-03-14] MEDS: metroNIDAZOLE 250 MG Tab PO SCH (10:12)
[2021-03-14] MEDS ORDERED: hydrOXYzine HCl 25 MG Tab PO SCH (21:00)
--- NOTE | 2021-03-14 22:53 | OBOUT ---
DATE: 03/14/2021 STUDY: Nonstress test. TIME: 9:30 a.m. INDICATION FOR NST: The patient was admitted overnight for observation and treatment of contractions. This is her final NST prior to discharge. Baseline heart rate 125 beats per minute. Moderate [id number]-[id number] variability. Accelerations noted. [place] shows no contractions. INTERPRETATION: Category 1 reassuring and reactive NST. [facility] /[id number]
--- NOTE | 2021-03-15 07:09 | DISCH ---
ADMITTING DIAGNOSES: 1. A 33-6/7 weeks intrauterine . 2. contractions. 3. 5, para 4-0-0-4. DISCHARGE DIAGNOSES: 1. A 33-6/7 weeks intrauterine . 2. contractions. 3. 5, para 4-0-0-4. BRIEF HISTORY: A 25-year-old, G5, P4, at 33-6/7 weeks gestation, presented to Labor and Delivery with increased contractions over 3 days. This is her 2nd visit to Labor and Delivery for contractions. She reported they were every 2 to 5 minutes apart and more painful than her others. No leakage of fluid or vaginal bleeding. Dr. Amaya performed admission and initial assessment. The patient noted to have bacterial vaginosis, urinary tract infection as the likely causes. Her fibronectin was negative. The patient was admitted overnight for monitoring. Clinical course has been good. The patient has done well. Contractions have spaced out significantly, only 1 every hour to hour and a half overnight with less intensity. She received a dose of betamethasone on the night of admission and otherwise standard care. She also received metronidazole and Rocephin for her bacterial vaginosis and urinary tract infections respectively. Cervix was checked and not changing. NSTs have been category 1, reassuring, and reactive. DISCHARGE CONDITION: Good. PHYSICAL EXAMINATION: VITAL SIGNS: Temperature is 97.7, pulse 71, blood pressure 107/65, respiratory rate of 16. HEART: Regular, without obvious murmurs. LUNGS: Clear to auscultation bilaterally. ABDOMEN: Gravid, soft, and nontender. heart tones 125 beats per minute at baseline. Moderate kncn-yp-bxgu variability. [place] showing no contractions. Category 1. DISPOSITION: Home. MEDICATIONS: Metronidazole 500 mg p.o. b.i.d., Keflex 500 mg p.o. b.i.d., vitamin continue 1 daily, Tylenol as needed for pain or discomfort. INSTRUCTIONS: Advised to make sure to have regular good oral intake and avoid strenuous activity. Return to Labor and Delivery if she has return of regular contractions with any increased force or frequency. Otherwise, keep her next routine scheduled appointment with Dr. Zaldivar. The patient will also return tomorrow night for her 2nd dose of betamethasone. The patient's questions were answered, and she was happy with the above plan. [facility] /[id number]
== END 2021-03-14 10:15 | disposition home or self-care (01) ==
LOC: DL.OBCHECK 21:23 → DL.MS 22:54
PROVIDERS: ADMIT Family Medicine; ATTEND Family Medicine
DX: O47.03 False labor before 37 completed weeks of gestation, third trimester (principal); O23.593 Infection of other part of genital tract in pregnancy, third trimester; O23.43 Unspecified infection of urinary tract in pregnancy, third trimester; Z3A.33 33 weeks gestation of pregnancy; Z88.5 Allergy status to narcotic agent; Z98.890 Other specified postprocedural states
CPT/HCPCS: 81001; 82731; 84112; 87081; 87086; 87210; 96365; 96372; A9270-GY; G0378; J0696; J0702; J7120

== ENCOUNTER 2021-04-18 08:05 | Inpatient (IN) | payer MEDICAID ==
[~2021-04-18 08:05] MED LIST: Acetaminophen 325 MG Tab PO PRN; Carboprost Tromethamine 250 MCG/1 ML Amp IM PRN; Lactated Ringers 1,000 ML IV ONE; Lactated Ringers 1,000 ML IV SCH; Lidocaine 1% 30 ML SDV INJECT PRN; Methylergonovine 0.2 MG/1 ML Amp IM PRN; Misoprostol 400 MCG (4 X 100 MCG TAB) RECTAL PRN; Ondansetron 4 MG/2 ML SDV IVPUSH PRN; Oxytocin/Normal Saline 30 UNIT/500 ML BAG IV SCH; Sodium Chloride 0.9% 10 ML Syringe FLUSH PRN; Tranexamic Acid 1,000 MG in Sodium Chloride 0.9% 100 ML IV PRN
[2021-04-18] MEDS ORDERED: EPINEPHrine 1 MG/ML SDV ONE (11:40)
[2021-04-18] MEDS ORDERED: fentaNYL 100 MCG/2 ML SDV ONE (11:40)
[2021-04-18] MEDS ORDERED: Sodium Bicarbonate 4.2% 2.5 MEQ/5 ML SDV ONE (11:40)
[2021-04-18] MEDS ORDERED: Simethicone 80 MG Tab.Chew PO PRN (12:56)
[2021-04-18] MEDS ORDERED: Sodium Chloride 0.9% 10 ML Syringe FLUSH PRN (12:56)
[2021-04-18] MEDS ORDERED: Zolpidem 5 MG Tab PO PRN (12:56)
[2021-04-18] MEDS ORDERED: Measles, Mumps & Rubella Vaccine 0.5 ML SDV SUBCUT ONE (12:56)
[2021-04-18] MEDS ORDERED: Benzocaine/Menthol 20%-0.5% Spray 78 GM Cannister TOP PRN (12:56)
[2021-04-18] MEDS ORDERED: Oxytocin 10 Units/1 ML SDV IM PRN (12:56)
[2021-04-18] MEDS: Docusate Sodium 100 MG Cap PO PRN (20:18)
[2021-04-18] MEDS: Ibuprofen 800 MG Tab PO PRN (20:18)
[2021-04-19] MEDS ORDERED: Ferrous Sulfate 325 MG Tab PO SCH (08:00)
[2021-04-19] MEDS ORDERED: Prenatal Multivitamin with Calcium/Folic Acid/Iron Tab PO SCH (09:00)
[2021-04-19] MEDS: Ibuprofen 800 MG Tab PO PRN (09:58)
[2021-04-19] MEDS: Docusate Sodium 100 MG Cap PO PRN (09:58)
[2021-04-19 10:27] VITALS: BP 114/59; PULSE 84
[2021-04-19] MEDS: Sodium Chloride 0.9% 10 ML Syringe FLUSH SCH (11:48)
== END 2021-04-19 15:45 | disposition home or self-care (01) | DRG 807 ==
LOC: UNDOADMIN 08:05 → DL.OB 08:05
PROVIDERS: ADMIT Family Medicine; ATTEND Family Medicine
PROC: 10E0XZZ Delivery of Products of Conception, External Approach (ICD-10-PCS; principal; 2021-04-18)
PROC: 10907ZC Drainage of Amniotic Fluid, Therapeutic from Products of Conception, Via Natural or Artificial Opening (ICD-10-PCS; 2021-04-18)
PROC: 3E0R3BZ Introduction of Anesthetic Agent into Spinal Canal, Percutaneous Approach (ICD-10-PCS; 2021-04-18)
PROC: 00HU33Z Insertion of Infusion Device into Spinal Canal, Percutaneous Approach (ICD-10-PCS; 2021-04-18)
PROC: 3E0234Z Introduction of Serum, Toxoid and Vaccine into Muscle, Percutaneous Approach (ICD-10-PCS; 2021-04-18)
DX: O77.0 Labor and delivery complicated by meconium in amniotic fluid (principal); Z37.0 Single live birth; O70.0 First degree perineal laceration during delivery; Z20.822 Contact with and (suspected) exposure to COVID-19; Z3A.39 39 weeks gestation of pregnancy; Z23 Encounter for immunization
CPT/HCPCS: 36415; 59409; 85027; 90707; A9270-GY; J2405; J2590; J7120; U0002

== ENCOUNTER 2022-03-11 00:34 | Emergency (ER) | payer MEDICAID ==
[2022-03-11 01:15] VITALS: BP 112/75; PULSE 115
[2022-03-11] MEDS ORDERED: Amoxicillin 250 MG/5 ML Susp 150 ML Bottle PO ONE (01:41)
[2022-03-11] MEDS ORDERED: Amoxicillin 500 MG Cap PO ONE (01:43)
== END 2022-03-11 01:55 | disposition home or self-care (01) ==
LOC: DL.ED 00:34
DX: J02.0 Streptococcal pharyngitis (principal); Z88.5 Allergy status to narcotic agent
CPT/HCPCS: 87430; 99283; A9270

== ENCOUNTER 2022-11-25 23:05 | Emergency (ER) | payer MEDICAID ==
[2022-11-25] MEDS ORDERED: Ondansetron 4 MG/2 ML SDV IVPUSH ONE ×2 (23:24→23:52)
[2022-11-25] MEDS ORDERED: Sodium Chloride 0.9% 1,000 ML IV ONE (23:24)
[2022-11-25] MEDS ORDERED: Sodium Chloride 0.9% 10 ML Syringe FLUSH PRN (23:24)
[2022-11-25 23:35] LABS: HEMATOCRIT 42.7 % (37.0-47.0); HEMOGLOBIN 14.5 g/dL (12.0-16.0); MEAN CORPUSCULAR HEMOGLOBIN 30.3 pg (27.0-34.0); MEAN CORPUSCULAR VOLUME 89.3 fL (80-100); PLATELET COUNT,PLT 292 10^3/uL (150-450); RED BLOOD CELL COUNT 4.78 10^6/uL (4.2-5.4); WHITE BLOOD CELL COUNT,WBC 10.7 10^3/uL (5.0-10.0)
[2022-11-25 23:36] LABS: BASOPHILS PERCENT AUTO 0.2 % (0.0-1.0); EOSINOPHILS PERCENT AUTO 1.4 % (1.0-3.0); LYMPHOCYTES PERCENT AUTO 30.2 % (20.5-50.1); MONOCYTES PERCENT AUTO 9.7 % (2-8); NEUTROPHILS PERCENT AUTO 58.5 % (42.2-75.2)
[2022-11-25 23:43] VITALS: BP 106/79; PULSE 93
[2022-11-25 23:46] LABS: APPEARANCE,URINE CLEAR (CLEAR); BILIRUBIN,URINE NEGATIVE (NEGATIVE); COLOR,URINE YELLOW (YELLOW); GLUCOSE,URINE NEGATIVE (NEGATIVE); KETONES,URINE NEGATIVE (NEGATIVE); LEUKOCYTE ESTERASE,URINE TRACE (NEGATIVE); NITRITE,URINE NEGATIVE (NEGATIVE); OCCULT BLOOD,URINE NEGATIVE (NEGATIVE); PROTEIN,URINE NEGATIVE (NEGATIVE); UROBILINOGEN,URINE 0.2 mg/dL (0.2-1.0)
[2022-11-25 23:49] LABS: AMPHETAMINES,URINE NEGATIVE (NEGATIVE); BARBITURATES,URINE NEGATIVE (NEGATIVE); BENZODIAZEPINE,URINE NEGATIVE (NEGATIVE); MDMA (ECSTASY), URINE NEGATIVE (NEGATIVE); METHADONE,URINE NEGATIVE (NEGATIVE); METHAMPHETAMINES,URINE NEGATIVE (NEGATIVE); OPIATES,URINE NEGATIVE (NEGATIVE); OXYCODONE,URINE NEGATIVE (NEGATIVE); PHENCYCLIDINE,URINE NEGATIVE (NEGATIVE); TCA,URINE NEGATIVE (NEGATIVE)
[2022-11-25 23:55] LABS: LACTIC ACID 1.2 mmol/L (0.4-2.0)
[2022-11-26 00:08] LABS: INR 0.9 (0.9-1.2); PROTHROMBIN TIME 9.1 SEC (9.0-12.0); PTT,PARTIAL THROMBOPLSTIN TIME 25.7 SEC (22.0-34.0)
[2022-11-26 00:18] LABS: ALANINE AMINOTRANSFERASE,ALT 52 U/L (14-59); ALBUMIN 3.7 g/dL (3.4-5.0); ALKALINE PHOSPHATASE 66 U/L (46-116); AMYLASE 56 U/L (25-115); ANION GAP 11.9 mEq/L (7-13); ASPARTATE AMNIOTRANSFERASE,AST 17 U/L (15-37); BILIRUBIN TOTAL 0.3 mg/dL (0.2-1.0); BLOOD UREA NITROGEN,BUN 15 mg/dL (7-18); C-REACTIVE PROTEIN 0.11 ng/dL (<=0.30); CARBON DIOXIDE,CO2 30 mmol/L (21-32); CHLORIDE,CL 103 mmol/L (98-107); CREATININE 0.88 mg/dL (0.55-1.02); EST CRCL DRUG DOSING (CG) 85.64 mL/min; ESTIMATED GFR 92 mL/min (>=60); GLUCOSE RANDOM 101 mg/dL (70-99); LIPASE 63 U/L (16-77); LYMPHOCYTES PERCENT MAN 38 % (20-50); MONOCYTES PERCENT MAN 8 % (2-8); POTASSIUM,K 3.9 mmol/L (3.5-5.1); PROTEIN TOTAL,TP 7.4 g/dL (6.4-8.2); SEG NEUTROPHILS PERCENT MAN 54 % (42-75); SODIUM,NA 141 mmol/L (136-145); TSH ULTRASENSITIVE 4.34 uIU/mL (0.36-3.74)
[2022-11-26 00:20] LABS: BACTERIA,URINE FEW /HPF (0-FEW/HPF); EPITHELIAL CELLS,URINE FEW /HPF (NOT SEEN); RBC,URINE 0-5 /HPF (0-5); WBC,URINE 0-5 /HPF (0-5/HPF)
[2022-11-26] MEDS ORDERED: Ketorolac 30 MG/ML SDV IVPUSH ONE (00:33)
[2022-11-26] MEDS ORDERED: Promethazine 25 MG/ML SDV IM ONE (00:35)
[2022-11-26] MEDS ORDERED: Iopamidol 755 Mg/ML 100 ML Bottle IVPUSH ONE (00:37)
== END 2022-11-26 01:57 | disposition home or self-care (01) ==
LOC: DL.ED 23:05
DX: K44.9 Diaphragmatic hernia without obstruction or gangrene (principal); B34.9 Viral infection, unspecified; R11.14 Bilious vomiting; Z86.16 Personal history of COVID-19; Z88.5 Allergy status to narcotic agent; Z20.822 Contact with and (suspected) exposure to COVID-19
CPT/HCPCS: 36415; 71045; 74177; 80053; 80305-QW; 81001; 81025; 82150; 82607; 83605; 83690; 83735; 84145; 84443; 84484; 85025; 85610; 85730; 86140; 87040; 87086; 87804; 93005; 93010; 96361; 96365; 96372; 96375; 99284; 99285-25; J1885; J2405; J2550; J3490; J7030; Q9967; U0002

== ENCOUNTER 2024-02-29 15:09 | Observation (INO) | payer MEDICAID ==
[2024-02-29] MEDS: Acetaminophen 500 MG Tab PO ONE (16:20)
[2024-02-29] MEDS ORDERED: NIFEdipine 30 MG Tab.ER PO ONE (19:12)
[2024-02-29] MEDS ORDERED: Sodium Chloride 0.9% 10 ML Syringe FLUSH PRN (19:16)
[2024-02-29] MEDS ORDERED: NIFEdipine 10 MG Cap PO ONE (19:17)
[2024-02-29] MEDS: NIFEdipine 10 MG Cap PO ONE ×2 (19:40)
[2024-02-29] MEDS: Lactated Ringers 1,000 ML IV ONE (19:40)
[2024-02-29] MEDS ORDERED: Naloxone 2 MG/2 ML Syringe IVPUSH PRN (21:39)
[2024-02-29] MEDS: Lactated Ringers 1,000 ML IV SCH (21:50)
[2024-02-29] MEDS: Morphine 2 MG/ML SYRINGE IVPUSH PRN (22:28)
[2024-02-29] MEDS: NIFEdipine 10 MG Cap PO SCH (22:40)
[2024-02-29] MEDS: fentaNYL 100 MCG/2 ML SDV IVPUSH PRN (23:11)
[2024-02-29] MEDS: Ondansetron 4 MG/2 ML SDV IVPUSH PRN (23:42)
[2024-03-01] MEDS: Acetaminophen 325 MG Tab PO PRN (01:30)
[2024-03-01] MEDS: oxyCODONE 5 MG Tab PO PRN (18:30)
[2024-03-01 19:25] VITALS: BP 112/61; PULSE 88
== END 2024-03-01 18:29 | disposition home or self-care (01) ==
LOC: DL.OBCHECK 15:09 → DL.OB 21:42
PROVIDERS: ADMIT Family Medicine; ATTEND Family Medicine
DX: O99.891 Other specified diseases and conditions complicating pregnancy (principal); Z3A.35 35 weeks gestation of pregnancy
CPT/HCPCS: 59025; 73521; 74018; 76815; 84112; 96374; 96375; 96376; 97161; A9270; G0378; J2270; J2405; J3010; J7120

== ENCOUNTER 2024-03-21 03:05 | Inpatient (IN) | payer MEDICAID ==
[2024-03-21] MEDS: Lactated Ringers 1,000 ML IV SCH (04:40)
[2024-03-21] MEDS ORDERED: Acetaminophen 325 MG Tab PO PRN (04:45)
[2024-03-21] MEDS ORDERED: Misoprostol 100 MCG Tab RECTAL PRN (04:45)
[2024-03-21] MEDS ORDERED: Methylergonovine 0.2 MG/1 ML Amp IM PRN (04:45)
[2024-03-21] MEDS ORDERED: Carboprost Tromethamine 250 MCG/1 ML Amp IM PRN (04:45)
[2024-03-21] MEDS ORDERED: Tranexamic Acid 1,000 MG in Sodium Chloride 0.9% 100 ML IV PRN (04:45)
[2024-03-21] MEDS ORDERED: Sodium Chloride 0.9% 10 ML Syringe FLUSH PRN ×2 (04:45→12:15)
[2024-03-21 05:04] LABS: HEMATOCRIT 36.7 % (37.0-47.0); HEMOGLOBIN 12.1 g/dL (12.0-16.0); MEAN CORPUSCULAR HEMOGLOBIN 31.4 pg (27.0-34.0); MEAN CORPUSCULAR VOLUME 95.3 fL (80-100); RED BLOOD CELL COUNT 3.85 10^6/uL (4.2-5.4); WHITE BLOOD CELL COUNT,WBC 10.7 10^3/uL (5.0-10.0)
[2024-03-21] MEDS ORDERED: fentaNYL 100 MCG/2 ML SDV ONE (05:05)
[2024-03-21] MEDS ORDERED: Bupivacaine 0.25% 10 ML SDV ONE (05:05)
[2024-03-21] MEDS ORDERED: Ketorolac 30 MG/ML SDV IVPUSH ONE (05:10)
[2024-03-21] MEDS ORDERED: fentaNYL 100 MCG/2 ML SDV EPIDUR ONE (05:10)
[2024-03-21] MEDS ORDERED: Ropivacaine 100 ML EPIDUR ONE (05:10)
[2024-03-21] MEDS ORDERED: Bupivacaine 0.25% 10 ML SDV NERVRT ONE (05:10)
[2024-03-21] MEDS ORDERED: Ondansetron 4 MG/2 ML SDV IV ONE (05:10)
[2024-03-21] MEDS ORDERED: ePHEDrine 50 MG/ML SDV IVPUSH PRN (05:31)
[2024-03-21] MEDS ORDERED: Phenylephrine HCl In 0.9% NaCl 1 MG/10 ML Syringe IVPUSH PRN (05:31)
[2024-03-21] MEDS: Ondansetron 4 MG/2 ML SDV IVPUSH PRN (05:37)
[2024-03-21] MEDS ORDERED: Ropivacaine 200 MG in Premix Bag 1 BAG EPIDUR SCH (05:45)
[2024-03-21] MEDS: Oxytocin/Normal Saline 30 UNIT/500 ML BAG IV SCH (06:21)
[2024-03-21] MEDS: Lidocaine 1% 30 ML SDV INJECT ONE (08:17)
[2024-03-21] MEDS ORDERED: Oxytocin 10 Units/1 ML SDV IM PRN (12:15)
[2024-03-21] MEDS ORDERED: Simethicone 80 MG Tab.Chew PO PRN (12:15)
[2024-03-21] MEDS: Ibuprofen 800 MG Tab PO SCH (13:30)
[2024-03-21] MEDS: Witch Hazel Medicated Pads 100/Jar TOP PRN (13:31)
[2024-03-21] MEDS: Benzocaine/Menthol 20%-0.5% Spray 78 GM Cannister TOP PRN (13:31)
[2024-03-21] MEDS: Lactated Ringers 1,000 ML IV ONE (13:35)
[2024-03-21] MEDS: Docusate Sodium 100 MG Cap PO PRN (20:36)
[2024-03-22 06:29] LABS: HEMATOCRIT 35.8 % (37.0-47.0); MEAN CORPUSCULAR HGB CONC 33.5 g/dL (33.0-35.0); MEAN CORPUSCULAR VOLUME 95.5 fL (80-100); RED BLOOD CELL COUNT 3.75 10^6/uL (4.2-5.4); WHITE BLOOD CELL COUNT,WBC 12.6 10^3/uL (5.0-10.0)
[2024-03-22] MEDS: Ferrous Sulfate 325 MG Tab PO SCH (09:03)
[2024-03-22] MEDS: Prenatal Multivitamin with Calcium/Folic Acid/Iron Tab PO SCH (09:03)
[2024-03-22 09:16] VITALS: BP 107/64; PULSE 77
== END 2024-03-22 14:18 | disposition home or self-care (01) | DRG 807 ==
LOC: DL.OBCHECK 03:05 → DL.OB 04:45
PROVIDERS: ADMIT Family Medicine; ATTEND Family Medicine
PROC: 00HU33Z Insertion of Infusion Device into Spinal Canal, Percutaneous Approach (ICD-10-PCS; principal; 2024-03-21)
PROC: 10E0XZZ Delivery of Products of Conception, External Approach (ICD-10-PCS; principal; 2024-03-21)
PROC: 3E0R3BZ Introduction of Anesthetic Agent into Spinal Canal, Percutaneous Approach (ICD-10-PCS; principal; 2024-03-21)
PROC: 10907ZC Drainage of Amniotic Fluid, Therapeutic from Products of Conception, Via Natural or Artificial Opening (ICD-10-PCS; principal; 2024-03-21)
DX: O42.02 Full-term premature rupture of membranes, onset of labor within 24 hours of rupture (principal); Z37.0 Single live birth; Z3A.38 38 weeks gestation of pregnancy; O99.344 Other mental disorders complicating childbirth; F32.A Depression, unspecified
CPT/HCPCS: 36415; 51701; 59409; 85027; A9270-GY; C1729; J0665; J1885; J2405; J2590; J2795; J3010; J7120

== ENCOUNTER 2024-06-14 18:14 | Emergency (ER) | payer MEDICAID ==
[2024-06-14] MEDS ORDERED: Sodium Chloride 0.9% 10 ML Syringe FLUSH PRN (18:19)
[2024-06-14 18:31] LABS: APPEARANCE,URINE CLEAR (CLEAR); BILIRUBIN,URINE NEGATIVE (NEGATIVE); COLOR,URINE YELLOW (YELLOW); GLUCOSE,URINE NEGATIVE (NEGATIVE); KETONES,URINE NEGATIVE (NEGATIVE); LEUKOCYTE ESTERASE,URINE NEGATIVE (NEGATIVE); NITRITE,URINE NEGATIVE (NEGATIVE); OCCULT BLOOD,URINE NEGATIVE (NEGATIVE); PH,URINE 8.5 (5.0-9.0); PROTEIN,URINE 30 (NEGATIVE)
[2024-06-14 18:32] VITALS: BP 109/69; PULSE 114
[2024-06-14] MEDS: Sodium Chloride 0.9% 1,000 ML IV ONE (18:38)
[2024-06-14] MEDS: Ondansetron 4 MG/2 ML SDV IVPUSH ONE (18:38)
[2024-06-14 18:40] LABS: BASOPHILS PERCENT AUTO 0.1 % (0.0-1.0); EOSINOPHILS PERCENT AUTO 0.2 % (1.0-3.0); HEMATOCRIT 43.8 % (37.0-47.0); HEMOGLOBIN 14.6 g/dL (12.0-16.0); LYMPHOCYTES PERCENT AUTO 4.4 % (20.5-50.1); MEAN CORPUSCULAR HEMOGLOBIN 30.4 pg (27.0-34.0); MEAN CORPUSCULAR HGB CONC 33.3 g/dL (33.0-35.0); MEAN CORPUSCULAR VOLUME 91.3 fL (80-100); MONOCYTES PERCENT AUTO 3.5 % (2-8); NEUTROPHILS PERCENT AUTO 91.8 % (42.2-75.2); PLATELET COUNT,PLT 227 10^3/uL (150-450)
[2024-06-14] MEDS: Ketorolac 30 MG/ML SDV IVPUSH ONE (18:47)
[2024-06-14 18:48] LABS: BACTERIA,URINE FEW /HPF (0-FEW/HPF); EPITHELIAL CELLS,URINE MODERATE /HPF (NOT SEEN); MUCUS,URINE FEW /LPF (NOT SEEN); RBC,URINE 0-5 /HPF (0-5)
[2024-06-14 19:01] LABS: A/G RATIO 1.1; ALBUMIN 4.1 g/dL (3.4-5.0); BILIRUBIN TOTAL 1.1 mg/dL (0.2-1.0); BUN/CREATININE RATIO 13.5 (No establ ref range); C-REACTIVE PROTEIN 0.6 ng/dL (<=0.50); CALCIUM 8.8 mg/dL (8.5-10.1); CREATININE 1.11 mg/dL (0.55-1.02); EST CRCL DRUG DOSING (CG) 66.69 mL/min; MAGNESIUM 1.9 mg/dL (1.8-2.4); PROTEIN TOTAL,TP 7.8 g/dL (6.4-8.2)
[2024-06-14 19:04] LABS: LACTIC ACID 1.4 mmol/L (0.4-2.0)
[2024-06-14 19:32] LABS: AMPHETAMINES,URINE NEGATIVE (NEGATIVE); BARBITURATES,URINE NEGATIVE (NEGATIVE); BENZODIAZEPINE,URINE NEGATIVE (NEGATIVE); MDMA (ECSTASY), URINE NEGATIVE (NEGATIVE); METHADONE,URINE NEGATIVE (NEGATIVE); METHAMPHETAMINES,URINE NEGATIVE (NEGATIVE); OPIATES,URINE NEGATIVE (NEGATIVE); OXYCODONE,URINE NEGATIVE (NEGATIVE); PHENCYCLIDINE,URINE NEGATIVE (NEGATIVE); TCA,URINE NEGATIVE (NEGATIVE)
== END 2024-06-14 20:04 | disposition home or self-care (01) ==
LOC: DL.ED 18:14
DX: R10.84 Generalized abdominal pain (principal); R19.7 Diarrhea, unspecified; Z88.5 Allergy status to narcotic agent; Z79.899 Other long term (current) drug therapy
CPT/HCPCS: 36415; 80053; 80305; 81001; 81025; 83605; 83690; 83735; 85025; 86140; 87428; 96361; 96374; 96375; 99284; J1885; J2405; J7030

== ENCOUNTER 2024-06-16 10:54 | Emergency (ER) | payer MEDICAID ==
[2024-06-16] MEDS: Ondansetron 4 MG/2 ML SDV IVPUSH ONE (11:15)
[2024-06-16] MEDS: HYDROmorphone 0.5 MG/0.5 ML Syringe IVPUSH ONE (11:15)
[2024-06-16 11:23] LABS: BASOPHILS PERCENT AUTO 0.3 % (0.0-1.0); EOSINOPHILS PERCENT AUTO 1.3 % (1.0-3.0); HEMATOCRIT 43.2 % (37.0-47.0); HEMOGLOBIN 14.6 g/dL (12.0-16.0); LYMPHOCYTES PERCENT AUTO 17.7 % (20.5-50.1); MEAN CORPUSCULAR HEMOGLOBIN 31.3 pg (27.0-34.0); MEAN CORPUSCULAR HGB CONC 33.8 g/dL (33.0-35.0); MEAN CORPUSCULAR VOLUME 92.7 fL (80-100); MONOCYTES PERCENT AUTO 10.6 % (2-8); NEUTROPHILS PERCENT AUTO 70.1 % (42.2-75.2); PLATELET COUNT,PLT 225 10^3/uL (150-450); RED BLOOD CELL COUNT 4.66 10^6/uL (4.2-5.4); WHITE BLOOD CELL COUNT,WBC 6.2 10^3/uL (5.0-10.0)
[2024-06-16] MEDS: Iopamidol 612 MG/ML 100 ML Bottle IVPUSH ONE (11:42)
[2024-06-16 11:45] LABS: ANION GAP 12.9 mEq/L (7-13); BILIRUBIN TOTAL 0.8 mg/dL (0.2-1.0); BUN/CREATININE RATIO 8.8 (No establ ref range); C-REACTIVE PROTEIN 5.19 ng/dL (<=0.50); CALCIUM 9.1 mg/dL (8.5-10.1); CREATININE 0.91 mg/dL (0.55-1.02); EST CRCL DRUG DOSING (CG) 81.34 mL/min; MAGNESIUM 1.9 mg/dL (1.8-2.4); POTASSIUM,K 3.9 mmol/L (3.5-5.1); PROTEIN TOTAL,TP 7.9 g/dL (6.4-8.2)
[2024-06-16 11:50] LABS: LACTIC ACID 0.7 mmol/L (0.4-2.0)
[2024-06-16 12:15] VITALS: BP 143/125; PULSE 71
[2024-06-16] MEDS: Ketorolac 30 MG/ML SDV IVPUSH ONE (13:01)
== END 2024-06-16 12:54 | disposition home or self-care (01) ==
LOC: DL.ED 10:54
DX: I88.0 Nonspecific mesenteric lymphadenitis (principal); E66.9 Obesity, unspecified; Z88.8 Allergy status to other drugs, medicaments and biological substances; Z79.899 Other long term (current) drug therapy; Z68.32 Body mass index [BMI] 32.0-32.9, adult
CPT/HCPCS: 36415; 74177; 80053; 83605; 83690; 83735; 85025; 86140; 87040; 96374; 96375; 99284; J1885; J2405; Q9967

== ENCOUNTER 2024-06-28 20:32 | Emergency (ER) | payer MEDICAID ==
[2024-06-28 21:49] VITALS: BP 132/80; PULSE 95
[2024-06-28] MEDS: Acetaminophen 500 MG Tab PO ONE (22:07)
[2024-06-28] MEDS: Ketorolac 30 MG/ML SDV IM ONE (22:07)
== END 2024-06-28 22:22 ==
LOC: DL.ED 20:32
DX: S00.83XA Contusion of other part of head, initial encounter (principal); S10.93XA Contusion of unspecified part of neck, initial encounter; S20.211A Contusion of right front wall of thorax, initial encounter; Z88.5 Allergy status to narcotic agent; Z79.899 Other long term (current) drug therapy; Y04.8XXA Assault by other bodily force, initial encounter
CPT/HCPCS: 70450; 70486; 71101-LT; 72125; 73120-LT; 96372; 99283; 99284; A9270-GY; J1885

== ENCOUNTER 2024-09-15 12:04 | Emergency (ER) | payer MEDICAID, OTHER ==
[2024-09-15] MEDS ORDERED: Sodium Chloride 0.9% 10 ML Syringe FLUSH PRN (12:24)
[2024-09-15 12:38] LABS: BASOPHILS PERCENT AUTO 0.2 % (0.0-1.0); EOSINOPHILS PERCENT AUTO 0.5 % (1.0-3.0); LYMPHOCYTES PERCENT AUTO 24.4 % (20.5-50.1); MONOCYTES PERCENT AUTO 7.4 % (2-8); NEUTROPHILS PERCENT AUTO 67.5 % (42.2-75.2); PLATELET COUNT,PLT 274 10^3/uL (150-450); RED BLOOD CELL COUNT 4.53 10^6/uL (4.2-5.4); WHITE BLOOD CELL COUNT,WBC 8.1 10^3/uL (5.0-10.0)
[2024-09-15 12:59] LABS: A/G RATIO 1.0; ALANINE AMINOTRANSFERASE,ALT 27 U/L (14-59); ASPARTATE AMNIOTRANSFERASE,AST 17 U/L (15-37); BILIRUBIN TOTAL 0.6 mg/dL (0.2-1.0); BLOOD UREA NITROGEN,BUN 14 mg/dL (7-18); CARBON DIOXIDE,CO2 26 mmol/L (21-32); CHLORIDE,CL 107 mmol/L (98-107); CREATININE 0.95 mg/dL (0.55-1.02); ESTIMATED GFR 83 mL/min (>=60); GLUCOSE RANDOM 106 mg/dL (70-99); POTASSIUM,K 4.0 mmol/L (3.5-5.1); PROTEIN TOTAL,TP 7.3 g/dL (6.4-8.2); SODIUM,NA 143 mmol/L (136-145)
[2024-09-15 13:04] LABS: HCG QUALITATIVE,SERUM NEGATIVE (NEGATIVE)
[2024-09-15] MEDS: Iopamidol 755 Mg/ML 100 ML Bottle IVPUSH ONE (13:04)
[2024-09-15] MEDS: Ketorolac 30 MG/ML SDV IVPUSH ONE (14:36)
[2024-09-15 14:44] LABS: AMPHETAMINES,URINE NEGATIVE (NEGATIVE); BARBITURATES,URINE NEGATIVE (NEGATIVE); MDMA (ECSTASY), URINE NEGATIVE (NEGATIVE); METHAMPHETAMINES,URINE NEGATIVE (NEGATIVE); OPIATES,URINE NEGATIVE (NEGATIVE); OXYCODONE,URINE NEGATIVE (NEGATIVE); PHENCYCLIDINE,URINE NEGATIVE (NEGATIVE); TCA,URINE NEGATIVE (NEGATIVE)
== END 2024-09-15 15:35 | disposition home or self-care (01) ==
LOC: DL.ED 12:04
DX: R51.9 Headache, unspecified (principal); M54.2 Cervicalgia; M79.622 Pain in left upper arm; E66.9 Obesity, unspecified; Z88.5 Allergy status to narcotic agent; Z79.899 Other long term (current) drug therapy; V43.52XA Car driver injured in collision with other type car in traffic accident, initial encounter; Y92.410 Unspecified street and highway as the place of occurrence of the external cause
CPT/HCPCS: 36415; 70450; 71045; 71260; 72125; 73030; 73080; 73110; 74177; 80053; 80305; 80307; 83735; 84703; 85025; 96374; 99283; 99285; Q9967

== ENCOUNTER 2024-12-25 10:03 | Emergency (ER) | payer MEDICAID, OTHER ==
[2024-12-25] MEDS ORDERED: Sodium Chloride 0.9% 10 ML Syringe FLUSH PRN (10:19)
[2024-12-25] MEDS: Ketorolac 30 MG/ML SDV IVPUSH ONE (10:26)
[2024-12-25] MEDS: Ondansetron 4 MG/2 ML SDV IVPUSH ONE (10:27)
[2024-12-25 10:28] LABS: BASOPHILS PERCENT AUTO 0.3 % (0.0-1.0); EOSINOPHILS PERCENT AUTO 1.4 % (1.0-3.0); LYMPHOCYTES PERCENT AUTO 28.4 % (20.5-50.1); MONOCYTES PERCENT AUTO 6.9 % (2-8); NEUTROPHILS PERCENT AUTO 63.0 % (42.2-75.2); PLATELET COUNT,PLT 251 10^3/uL (150-450); RED BLOOD CELL COUNT 4.64 10^6/uL (4.2-5.4); WHITE BLOOD CELL COUNT,WBC 8.0 10^3/uL (5.0-10.0)
[2024-12-25 10:44] LABS: BLOOD UREA NITROGEN,BUN 13.0 mg/dL (7-18); CARBON DIOXIDE,CO2 28.0 mmol/L (21-32); CHLORIDE,CL 102.0 mmol/L (98-107); CREATININE 0.82 mg/dL (0.55-1.02); EST CRCL DRUG DOSING (CG) 90.27 mL/min; ESTIMATED GFR 99.0 mL/min (>=60); GLUCOSE RANDOM 103.0 mg/dL (70-99); POTASSIUM,K 3.7 mmol/L (3.5-5.1); SODIUM,NA 139.0 mmol/L (136-145)
[2024-12-25] MEDS: Iopamidol 612 MG/ML 100 ML Bottle IVPUSH ONE (11:24)
[2024-12-25 11:55] VITALS: BP 112/77; PULSE 54
== END 2024-12-25 11:47 | disposition home or self-care (01) ==
LOC: DL.ED 10:03
DX: H66.91 Otitis media, unspecified, right ear (principal); Z88.5 Allergy status to narcotic agent
CPT/HCPCS: 36415; 70491; 80048; 85025; 96361; 96374; 96375; 99284; J1171; J1885; J2405; J7030; Q9967